=== PATIENT | male | born 1950 | race Caucasian/White ===

== ENCOUNTER → 2022-04-21 15:12 | Outpatient (CLI) | payer MEDICARE, SELFPAY ==
--- NOTE | ~2022-04-21 | US_ITS ---
US scrotum doppler INDICATION: Testicular swelling TECHNIQUE: Testicular sonogram utilizing grayscale and color Doppler FINDINGS: The testes are normal in size and appearance. No focal lesions are seen. The right testes measures 4.8 x 3 x 3.6 cm centimeters, and the left testis measures 5.9 x 3 x 3.3 cm cm. There is nor mal vascular flow to both testes. The right and left epididymides appear normal. There is a small right hydrocele. There is moderate left hydrocele. No evidence for varicocele. IMPRESSION: 1. Bilateral hydroceles, left greater than right. Reviewed, dictated and finalized at location B.
== END ==
PROVIDERS: PCP Physician Assistant; Visit Provider Physician Assistant
DX: N50.89 Other specified disorders of the male genital organs (principal); N43.3 Hydrocele, unspecified
CPT/HCPCS: 76870; 93976

== ENCOUNTER 2022-07-26 10:09 | Outpatient (CLI) | payer MEDICARE, SELFPAY ==
[2022-07-26 10:59] LABS: Hemoglobin A1C 6.5 % (<5.7)
[2022-07-26 11:10] LABS: Alanine Aminotransferase 19 U/L (6-50); Albumin Level 4.1 g/dL (3.5-5.1); Alkaline Phosphatase 48 U/L (38-126); Anion Gap 13 mmol/L (8-16); Aspartate Amino Transferase 25 U/L (17-59); Bilirubin,Total 0.5 mg/dL (0.2-1.3); Blood Urea Nitrogen 24 mg/dL (9-20); Calcium 9.8 mg/dL (8.4-10.2); Carbon Dioxide 20 mmol/L (22-30); Chloride 103 mmol/L (98-107); Estimated Glomerular Filt Rate 50; Glucose 133 mg/dL (65-110); Potassium 4.7 mmol/L (3.4-5.0); Sodium 136 mmol/L (137-145)
== END 2022-07-26 10:10 | disposition home or self-care (01) ==
LOC: ANHLAB 10:11
PROVIDERS: PCP Family Medicine; Visit Provider Family Medicine
DX: E11.9 Type 2 diabetes mellitus without complications (principal)
CPT/HCPCS: 36415; 80053; 83036

== ENCOUNTER 2023-07-13 01:03 | Day surgery (SDC) | payer MEDICARE, SELFPAY ==
[2023-07-12 12:30] VITALS: BMI 42.5
[2023-07-13] VITALS (21 sets, daily range): BP systolic 105–146; BP diastolic 58–76; PULSE 6–76; RESP 11–16; TEMP 36.3; O2SAT 94–98; BMI 41.8
[2023-07-13 09:00] LABS: Basophils Absolute Auto 0.1 K/mm3 (0.0-0.1); Basophils Percent Auto 0.5 % (0.2-1.2); Eosinophils Absolute Auto 0.3 K/mm3 (0-0.3); Eosinophils Percent Auto 2.9 % (0-4.4); Hematocrit 32.1 % (42.0-52.0); Hemoglobin 10.1 g/dL (14.0-18.0); Immature Granulocyte Absolute 0.09 K/mm3 (0.00-0.031); Lymphocytes Percent Auto 16.1 % (18.3-44.2); Mean Corpuscular HGB Conc 31.5 g/dl (32-36); Mean Corpuscular Hemoglobin 26.2 pg (26-34); Mean Corpuscular Volume 83.2 fl (80-100); Mean Platelet Volume 9.5 fl (7.4-10.4); Monocytes Absolute Auto 0.8 K/mm3 (0.1-0.6); Monocytes Percent Auto 8.7 % (2.6-8.5); Neutrophils Absolute Auto 6.6 K/mm3 (1.3-6.7); Neutrophils Percent Auto 70.8 % (45.5-73.1); Platelet Count Result 284 k/mm3 (150-375); Red Blood Count 3.86 M/mm3 (4.6-6.20); Red Cell Distribution Width 16.1 % (11.5-14.5); White Blood Count 9.3 K/mm3 (4.5-10.0)
[2023-07-13 09:12] LABS: Anion Gap 11 mmol/L (8-16); Blood Urea Nitrogen 21 mg/dL (9-20); Calcium 9.7 mg/dL (8.4-10.2); Carbon Dioxide 22 mmol/L (22-30); Chloride 104 mmol/L (98-107); Estimated CRCL calculation 54 ml/min; Estimated Glomerular Filt Rate 54; Glucose 131 mg/dL (65-110); Potassium 4.3 mmol/L (3.4-5.0); Sodium 137 mmol/L (137-145)
--- NOTE | 2023-07-13 10:29 | WPDMODSED ---
Moderate Sedation Note-Pt Data Patient Data Diagnosis: coronary artery disease with previous PCI abnormal nuclear stress test symptoms of ARNETT with chest discomfort Present Complaint: exertional shortness of breath with occasional chest tightness for the last 1-2 months Procedure to be performed/Plan: left heart catheterization Allergies Allergy/AdvReac Type Severity Reaction Status Date / Time bee pollen Allergy Severe Rash Verified 07/13/23 08:48 Home Medications Medication Instructions Recorded Confirmed Type amlodipine 10 mg tablet 10 mg PO DAILY 01/25/20 07/13/23 History aspirin 81 mg tablet,delayed 81 mg PO DAILY 01/25/20 07/13/23 History release (Aspir-) clopidogrel 75 mg tablet 75 mg PO DAILY 01/25/20 07/13/23 History fenofibrate nanocrystallized 145 145 mg PO DAILY 01/25/20 07/13/23 History mg tablet indapamide 2.5 mg tablet 2.5 mg PO QAM 01/25/20 07/13/23 History isosorbide mononitrate 120 mg 120 mg PO DAILY 10/29/20 07/13/23 History tablet,extended release 24 hr omeprazole 20 mg capsule,delayed 20 mg PO DAILY 10/29/20 07/13/23 History release lancets [facility] gauge [facility] ea 10/30/20 01/31/23 Rx Plus Lancet) blood sugar diagnostic ([facility] 01/12/22 01/31/23 Rx Verio test strips) metformin 500 mg tablet,extended 1,000 mg PO BID #360 tabs 11/29/22 07/12/23 Rx release 24hr atorvastatin 40 mg tablet 40 mg PO DAILY #90 tabs 01/10/23 07/13/23 Rx sitagliptin phosphate 100 mg 100 mg PO DAILY #90 tabs 01/10/23 07/12/23 Rx tablet (Januvia) spironolactone 25 mg tablet 25 mg PO DAILY #100 tabs 01/25/23 07/13/23 Rx doxazosin 2 mg tablet 2 mg PO DAILY #90 tabs 03/21/23 07/13/23 Rx nitroglycerin 0.4 mg sublingual 0.4 mg sublingual Q5M PRN chest 04/12/23 07/12/23 Rx tablet pain #25 tabs metoprolol tartrate 100 mg tablet 100 mg PO BID #180 tabs 05/12/23 07/13/23 Rx tramadol 50 mg tablet 50 mg PO Q8H PRN pain #30 tabs 07/08/23 07/12/23 Rx glimepiride 4 mg tablet 8 mg PO DAILY 07/12/23 07/12/23 History lisinopril 30 mg tablet 30 mg PO BID 07/12/23 07/13/23 History Current Medications: Active Medications Sodium Chloride (Normal Saline Iv) 500 mls @ 100 mls/hr IV CONT .Q5H RYAN Sedation/Anesthesia: No previous sedation/anesthesia problems (including family history). [facility] Past Medical History Medical History Bilateral knee pain Chronic kidney disease Coronary artery disease Hyperlipidemia LDL goal <70 Primary hypertension Type 2 diabetes mellitus with hyperglycemia Family History Family History Father Family history of Parkinson's disease Family history of cardiovascular disease Family history of coronary artery disease Mother Family history of cardiovascular disease Family history of coronary artery disease Sibling Family history of cardiovascular disease Family history of coronary artery disease Social History Social History (Updated 04/12/23 @ 08:29 by Binta Worthy GUEST SERVICES ASSISTANT) Smoking packs per day: 1 Smoking cigarettes per day: 20.0 Years smoked: 15 Smoking pack-years: 15.00 Smoking status: Former smoker Second hand tobacco smoke exposure: No Smoking end date: 11/14/96 Alcohol intake: never Substance use: never Substance use type: does not use Lack of Transportation: No Lack of Food: Never True Current Housing: I Have Housing Concerned About Future Housing: No Difficulty Paying Gas/Electric Bills: No Difficulty Paying for Meds: No Currently Unemployed: No Education: High School Diploma/GED Difficulty w/ Childcare or Family Care: No Living arrangements: with family Occupation/Education: retired Gender identity (if verbalized by the patient): Male Sexual Orientation (if Verbalized by the Patient): Straight or Heterosexual Spiritual care concerns: No Mod Sed Physical Exam
--- NOTE | 2023-07-13 11:02 | WPDCARDPROC ---
Cardiac Cath Procedure Note Date of procedure:: 07/13/23 Performing physician:: Khris Goldberg MD Indication:: coronary artery disease with previous PCI exertional dyspnea with anginal type chest pain for the last 1-2 months abnormal nuclear stress test Brief clinical history:: this is a 72-year-old man has had long history of coronary disease with previous percutaneous revascularization. He has been experiencing exertional symptoms with dyspnea and some chest pain of recent onset and a nuclear stress test was significantly abnormal. Follow-up angiography has been therefore recommended Procedure Procedure performed:: left ventriculogram coronary angiogram Sedation/Medication given:: fentanyl 50 mg Versed 2 mg case start 1036 a.m. case end time 10:56 a.m. provided by Lizett Solo RN, trained observer Access site:: right femoral artery Estimated blood loss:: 25 cc Procedure note:: patient was brought to the cardiac catheterization lab postabsorptive state where the right femoral triangle was prepped and draped in the normal fashion. Anesthesia was provided with 1% lidocaine infiltrated locally. Using the modified Seldinger technique the right femoral artery was punctured and a 5 Guamanian vascular sheath was placed. After this I used a 5 Guamanian angled pigtail catheter to measure left-sided hemodynamics and to injection LV g in the LASSITER projection. Following this the left coronary artery was engaged and injected using a standard 5 Guamanian FL4 catheter. The right coronary then was engaged and injected using a standard 5 Guamanian JR4 catheter. The cineangiograms were then reviewed and the case was terminated. Sheath was removed in the holding area with direct manual compression. There were no procedural complications and there was no evidence of groin hematoma when he left the cardiac catheterization lab. Findings:: Hemodynamics: Central aortic pressure 115/60 ventricle 15/10 and diastolic 18 there is no gradient on pullback across the aortic valve. Left ventricle: The LV is normal in size. The apical segment is akinetic the remainder of the LV contracts very well with a global ejection fraction of 60-65%. The left main coronary artery is medium in caliber. There is a complex looking 80-90% distal LAD lesion. It is eccentric the left anterior descending is a small to medium caliber artery there is visible stent material in the LAD after the diagonal branches take their origin. There is a stump of small 1st diagonal branch that is totally occluded aim larger 2nd diagonal branch is a bifurcating vessel which has some proximal ectatic dilatation but no significant lesions are seen in this vessel. A small septal branch is also remaining patent. The stented segment of the LAD distal to these vessels has moderate InStent restenosis of approximately 50-60%. The apical portion of the LAD is totally closed the circumflex is a small caliber vessel that also appears to be diffusely disease. There is stent material in the 1st OM branch which is totally occluded. There is a very small diminutive AV groove portion of the circumflex which remains. The right coronary artery is larger in caliber and dominant to the posterior circulation. There is visible stent material in the 2nd portion of the RCA. The trunk of the right coronary artery is moderately diffusely diseased but I do not see any angiographic lesions that are higher grade than 50-60%. The PDA and PL branches are patent the largest most distal PL branch has a discrete 70-80% stenosis. Conclusion:: 1. Diffuse three-vessel coronary artery disease as described above with 80-90% distal stenosis of the left main 2. diffuse InStent restenosis in mid LAD approximately 60% with total occlusion of the apical portion of the LAD as well as of a relatively small high diagonal branch 3. total occlusion of the obtuse marginal circumflex which had been stented pr
[2023-07-13] MEDS: ONDANSETRON INJ 4 MG/2 ML VIAL (11:35)
--- NOTE | 2023-07-13 14:21 | SUR.PHASEII ---
CORRECTION TO AV SHEATH DOCUMENTATION FOR 1215 AND 1230-CORRECT SHEATH PULL TIME IS 1131
== END 2023-07-13 17:05 | disposition home or self-care (01) ==
PROVIDERS: PCP Family Medicine; Visit Provider Specialist
PROC: 4A023N7 Measurement of Cardiac Sampling and Pressure, Left Heart, Percutaneous Approach (ICD-10-PCS; CPT 93452; principal; 2023-07-13 10:00)
DX: I25.10 Atherosclerotic heart disease of native coronary artery without angina pectoris (principal); T82.855A Stenosis of coronary artery stent, initial encounter; Y83.8 Other surgical procedures as the cause of abnormal reaction of the patient, or of later complication, without mention of misadventure at the time of the procedure; R07.9 Chest pain, unspecified; R06.00 Dyspnea, unspecified; R94.39 Abnormal result of other cardiovascular function study; I12.9 Hypertensive chronic kidney disease with stage 1 through stage 4 chronic kidney disease, or unspecified chronic kidney disease; E11.22 Type 2 diabetes mellitus with diabetic chronic kidney disease; N18.30 Chronic kidney disease, stage 3 unspecified; E78.5 Hyperlipidemia, unspecified; Z95.5 Presence of coronary angioplasty implant and graft; Z79.82 Long term (current) use of aspirin; Z79.84 Long term (current) use of oral hypoglycemic drugs; Z87.891 Personal history of nicotine dependence
CPT/HCPCS: 36415; 80048; 85025; 93458; C1887; C1894; J1644; J2250; J2405; J3010; J7040

== ENCOUNTER 2023-12-01 09:45 | Outpatient (RCR) | payer MEDICARE, SELFPAY ==
[2023-10-04 12:05] VITALS: PULSE 92
== END 2023-12-01 11:38 | disposition home or self-care (01) ==
LOC: ANHCPREHAB 09:45
PROVIDERS: PCP Family Medicine; Visit Provider Internal Medicine Cardiovascular Disease
DX: Z95.1 Presence of aortocoronary bypass graft (principal)
CPT/HCPCS: 93798

== ENCOUNTER 2025-01-23 11:03 | Outpatient (CLI) | payer MEDICARE, SELFPAY ==
--- NOTE | ~2025-01-23 | XR_ITS ---
Clinical Indication: Dyspnea PA and lateral views of the chest: Comparison: 02/16/2017 Findings: There is mild haziness right lung base, nonspecific. Left lung clear. Cardiomediastinal si lhouette is within normal limits. Bones and soft tissues are unremarkable. Impression: Probable mild right basilar atelectatic change, less likely pneumonia. Correlate clinically. Left lung clear. Reviewed, dictated and finalized at location . Impression: Probable mild right basilar atelectatic change, less likely pneumonia. Correlat e clinically. Left lung clear.
--- OUTSIDE RECORDS SUMMARY | 2025-01-23 12:52 | XMS_ITS | Clinical Summary ---
[facility] Address [address] [place] [address] Care Team Providers Care Triage Specialist Name Role Phone Kayleigh Kelley MD Primary Care Provi luz elena Allergies Active Allergy Reactions Criticality Noted Date Comments Venom-Honey Bee Swelling Low 07/24/2018 Medications fenofibrate nanocrystallized (TRICOR) 145 mg tablet 0 Active lisinopriL (PRINIVIL) 40 mg tablet 0 Active JANUVIA 100 mg Tablet TK 1 T PO D 0 Active glimepiride (AMARYL) 4 mg tablet TK 2 TS PO QD 0 Active doxazosin (CARDURA) 2 mg tablet TK 1 T PO QD 0 Active indapamide (LOZOL) 2.5 mg tablet 0 Active atorvastatin (LIPITOR) 40 mg tablet 0 Active clopidogreL (PLAVIX) 75 mg Tablet 0 Active amLODIPine (NORVASC) 10 mg tablet 0 Active metoprolol tartrate (LOPRESSOR) 50 mg tablet 0 Active aspirin-calcium carbonate 81 mg-300 mg calcium(777 mg) Tablet 81 mg. 3 Active isosorbide mononitrate (IMDUR) 30 mg Extended Release 24 hour tablet 0 Active omeprazole (PriLOSEC) 20 mg Capsule, Delayed Release(E.C.) Take 20 mg by mouth. 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 Family History Medical History Relation Name Comments Heart Disease Father Parkinson's Disease Father Heart Disease Mother Parkinson's Disease Mother Heart Disease Sister 2 Relation Name Status Comments Brother 1 Alive Brother 2 Alive Brother 3 Alive Father Mother Alive Sister 1 Alive Sister 2 Alive Sister 3 Alive Son 1 Alive Son 2 Alive Social History Tobacco Use Types Packs/Day Years Used Date Smoking Tobacco: Former Cigarettes 1 20 0 01/28/1977 - 01/28/1997 Smokeless Tobacco: Never Tobacco Cessation:Counseling Given: No Alcohol Use Standard Drinks/Week Comments Not Currently 0 (1 standard drink = 0.6 oz pur e alcohol) Sex and Gender Information Value Date Recorded Sex Assigned at Not on file Legal Sex Male 8:40 AM [employer] Gender Identity Not on file Sexual Orientation Not on file Last Filed Vital Signs Vital Sign Reading Time Taken Comments Blood Pressure 151/80 01/29/2020 2:27 PM CDT 1st bp take 154/85 hr 73 Pulse 70 01/29/2020 2:27 PM CDT Temperature 36.7 C (98 F) 02/11/2020 10:01 AM CDT Respiratory Rate - - Oxygen Saturation 95% 01/29/2020 2:2 7 PM CDT Inhaled Oxygen Concentration - - Weight 126.2 kg (278 lb 3.2 oz) 01/29/2020 2:27 PM CDT Height 165.1 cm (5' 5 ) 01/29/2020 2:27 PM CDT Body Mass Index 46.29 01/29/2020 2:27 PM CDT Plan of Treatment Health Maintenance Due Date Last Done Comments DIABETES ANNUAL FOOT EXAM 1969 DIABETES ANNUAL RETINAL EXAM 1969 DIABETES HBA1C Q 6 MONTHS 1969 DIABETES MICROALBUMIN ANNUAL SCREEN 1969 LDL CHOLESTEROL ANNUAL 1969 DTAP/TDAP/TD VACCINES (1 - Tdap) 1970 ZOSTER VACCINE (1 of 2) 1970 COLORECTAL SCREENING 1996 Colorectal Cancer Screening 1996 FIT-DNA Q 3 years 1996 FIT/FOBT Q 1 year 1996 Flex Sig/CT Colonography Q 5 years 1996 RSV VACCINE (60+ or ) (1 - Risk 60-74 years 1-dose series) 2011 PNEUMOCOCCAL VACCINE 50+ YEA RS (2 of 2 - PPSV23) 03/09/2017 01/12/2017 INFLUENZA VACCINE (#1) 2024 10/21/2017, 2015 Care Teams Triage Specialist Relationship Specialty Start Date End Date Kayleigh Kelley MD [address] [place] [address] PCP - General Family Practice 01/29/20
--- OUTSIDE RECORDS SUMMARY | 2025-01-23 12:52 | XMS_ITS | Clinical Summary ---
Author Organization [facility] Address [address] [place] [address] Care Team Providers Care Automobile Upholstery Trim Installer Name Role Phone Britta Hansen MD Primary Care Provider [phone] Khris Goldberg MD Unavailable [phone] Sukh Robledo MD Unavailable [phone] Rc Garza MD Unavailable [phone] Allergies Active Allergy Reactions Criticality Noted Date Comments Venom-Honey Bee Unknown 07/24/2018 Medications aspirin 81 mg tablet take 1 tablet (81MG) by oral route every day 0 013 Active SITagliptin (JANUVIA) 100 mg tablet take 1 tablet (100MG) by oral route every evening 0 013 Active doxazosin (CARDURA) 2 mg tablet Take 1 tablet (2 mg total) by mouth nightly Active EPINEPHrine (EPIPEN) 0.15 mg/0.3 mL injection syringeIndications: Anaphylaxis Inject 0.3 mL (0.15 mg total) into the muscle as instructed as needed for anaphylaxis Active glimepiride (AMARYL) 4 mg tabletIndications:t ype 2 diabetes mellitus Take 1 tablet (4 mg total) by mouth 2 (two) times a day Active omeprazole (PriLOSEC) 20 mg capsule Take 1 capsule (20 mg total) by mouth daily Active metoprolol (LOPRESSOR) 100 mg tablet Take 1 tablet (100 mg total) by mouth 2 (two) times a day Active metFORMIN XR (GLUCOPHAGE XR) 500 mg 24 hr tablet Take 2 tablets (1,000 mg total) by mouth 2 (two) times a day 020 Active traMADoL (ULTRAM) 50 mg tablet Take 1 tablet (50 mg total) by mouth every 8 (eight) hours as needed for pain 021 Active acetaminophen 500 mg capsuleIndications: Pain Take 2 capsules (1,000 mg total) by mouth every 6 (six) hours as needed for pain 023 Active lidocaine (LIDODERM) 5 % Place 2 patches on the skin daily for 7 days Remove & discard patch within 12 hours or as directed by MD. 7 patch 023 Active albuterol HFA (PROVENTIL HFA,VENTOLIN HFA,PROAIR HFA) 90 mcg/actuation inhaler INHALE 1 PUFF BY MOUTH EVERY 4 HOURS NEEDED FOR WHEEZING OR SHORTNESS OF BREATH 024 Active amLODIPine (NORVASC) 10 mg tablet TAKE 1 TABLET(10 MG) BY MOUTH DAILY 90 tablet 024 Active atorvastatin (LIPITOR) 80 mg tablet TAKE 1 TABLET(80 MG) BY MOUTH EVERY NIGHT 90 tablet 025 Active clopidogreL (PLAVIX) 75 mg tablet TAKE 1 TABLET(75 MG) BY MOUTH DAILY 90 tablet 1 025 Active fenofibrate nanocrystallized (TRICOR) 145 mg tablet TAKE 1 TABLET(145 MG) BY MOUTH DAILY 90 tablet 025 Active fenofibrate nanocrystallized (TRICOR) 145 mg tablet Take 1 tablet (145 mg total) by mouth daily 90 tablet 024 2024 Discontinued Active Problems Problem Noted Date Diagnosed Date Renal cell carcinoma 07/10/2024 Mass of lower lobe of right lung 12/09/2023 Hx of CABG 11/01/2023 Aftercare following surgery of the circulatory s ystem 09/21/2023 Right lower lobe lung mass 08/19/2023 Mixed diabetic hyperlipidemi a associated with type 2 diabetes mellitus 08/17/2022 S/P coronary artery stent placement 08/17/2022 Controlled type 2 diabetes m ellitus with stage 3 chronic kidney disease, without long-term current use of insulin 08/17/2022 LYNDSEY on CPAP 08/17/2022 Dyspnea on exertion 07/23/2019 Assessment & Plan (01/30/2021 7:35 PM CDT): Stable, likely deconditioning and obesity. Assessment & Plan (07/23/2019 10:06 AM CDT): Lungs sound clear on exam. His exertional dyspnea may be secondary to obesity and deconditioning, but need to rule out LV dysfunction and myocardial ischemia, particularly given the association with mild chest tightness. Will obtain a pharmacologic stress test (cannot walk on a treadmill because of orthopedic issues and uses a cane; he is also on beta-jacquelin therapy) and echocardiogram. Morbid obesity with BMI of 40.0-44.9, adult 07/16 Assessment & Plan (02/01/2022 12:34 PM CDT): He has had some success with weight loss through dietary modification. Assessment & Plan (08/03/2021 11:16 AM CDT): Nice weight loss since last seen in January. He was congratulated on this. Assessment & Plan (01/30/2021 7:36 PM CDT): Would benefit from weight loss through diet and exercise. Difficult because his arthritis prevents him from much activity. Assessment & Plan (07/07/2020 10:26 AM CDT): Weight is stable, but needs to be less. He is limited in his ability to exert because of orthopedic issues. Calorie restriction is important. Assessment & Plan (12/25/2019 11:03 AM ORACLE HRMS DEVELOPER): Needs to lose weight through diet and exercise, the latter being a challenge given his exertional symptoms. Assessment & Plan (07/23/2019 10:08 AM CDT): Needs to lose weight. If cardiac testing comes out okay, will benefit from strict diet and exercise. Assessment & Plan (08/11/2018 6:29 PM CDT): Weight loss through diet and exercise advised. Hypertension associated with diabetes 08/11/2018 Assessment & Plan (02/01/2022 12:34 PM CDT): Blood pressure controlled on current regimen which was not changed. Assessment & Plan (08/03/2021 11:16 AM CDT): Blood pressure is adequately controlled on current regimen. No change was made. Assessment & Plan (01/30/2021 7:35 PM CDT): Blood pressure is adequately controlled on current regimen. No change was made. Assessment & Plan (07/07/2020 10:25 AM CDT): Blood pressure is high today because he forgot to take his medications. When he takes his medicine his blood pressure is normal. Assessment & Plan (03/03/2020 10:04 AM CDT): Blood pressure is adequately controlled on current regimen. No change was made. He Assessment & Plan (12/25/2019 11:02 AM ORACLE HRMS DEVELOPER): Blood pressure is adequately controlled on current regimen. No change was made. Assessment & Plan (08/02/2019 5:42 PM CDT): One of his two blood pressure readings today was high. Possibly secondary to increased sodium intake. Will see what his blood pressure is on the day of his cardiac testing. Assessment & Plan (08/11/2018 6:28 PM CDT): Blood pressure is adequately controlled on current regimen. No change was made. Coronary artery disease invo lving eagle coronary artery of eagle heart without angina pectoris 04/22/2015 Overview (02/18/2017): Coronary arteriosclerosis in eagle artery Assessment & Plan (02/01/2022 12:35 PM CDT): Asymptomatic on isosorbide 120 mg daily and metoprolol 100 mg b.i.d... Continue aspirin 81 mg daily and Plavix 75 mg daily. Cardiac catheterization avoided because of diabetic nephropathy. He will follow-up with Dr. Whitaker in six months. If still stable at that time, can probably be seen yearly. Assessment & Plan (08/03/2021 11:16 AM CDT): On his current regimen of high-dose Imdur and metoprolol, he is asymptomatic of angina. Continue these medications as well as dual anti-platelet therapy. Assessment & Plan (01/30/2021 7:34 PM CDT): Asymptomatic on medical therapy. No change. Continue dual anti-platelet therapy. Assessment & Plan (07/07/2020 10:25 AM CDT): Minimal exertional angina if he exerts himself more than his usual. Will increase isosorbide to 120 mg daily, 1st with his trying taking two of his 60 mg tablets. He is to call in a week in if this is working out for him we will prescribe 120 mg strength. Assessment & Plan (03/03/2020 10:04 AM CDT): Symptoms improved with low-dose isosorbide. Will increase to 60 mg daily. He would like to try this by doubling up on his 30 mg pills for a few days and will call us by the end of the week to let us know if this has worked in which case we will send in a prescription for 60 mg tabs. Assessment & Plan (12/25/2019 11:02 AM ORACLE HRMS DEVELOPER): He is experiencing stable angina, with exertional dyspnea and chest discomfort. From his recent pharmacologic MPI, this appears to be in the distribution of his distal LAD which is known to be disease. I am hesitant to recommend cardiac catheterization given his renal status, and he agrees with that. Will start low-dose nitrate (explained that he may have a headache for a couple of days which he can treat with Tylenol and to let me know if it does not go away), with supplemental sublingual nitroglycerin as needed. Continue aspirin. Assessment & Plan (07/23/2019 10:07 AM CDT): He is not experiencing his usual exertional jaw discomfort. Continue anti- platelet therapy. Assessment & Plan (08/11/2018 6:28 PM CDT): No symptoms of myocardial ischemia. Continue anti-platelet therapy. Resolved Problems Problem Noted Date Diagnosed Date Resolved Date Coronary artery disease invo lving eagle coronary artery of eagle heart with unstable angina pectoris 08/15/2023 11/01/2023 Pure hypercholesterolemia 08/11/2018 Assessment & Plan (02/01/2022 12:34 PM CDT): Continue high-intensity statin therapy. Assessment & Plan (08/03/2021 11:16 AM CDT): On chronic lipid lowering therapy with good control. No changes made. Assessment & Plan (01/30/2021 7:35 PM CDT): On chronic lipid lowering therapy with good control. No changes made. Assessment & Plan (07/07/2020 10:25 AM CDT): On chronic lipid lowering therapy with good control. No changes made. Assessment & Plan (03/03/2020 10:06 AM CDT): On chronic lipid lowering therapy with good control. No changes made. Assessment & Plan (12/25/2019 11:03 AM ORACLE HRMS DEVELOPER): On chronic lipid lowering therapy with good control. No changes made. Assessment & Plan (08/02/2019 5:41 PM CDT): He is on high-intensity statin therapy. LDL is reasonably controlled. HDL is chronically low. Assessment & Plan (08/11/2018 6:29 PM CDT): On chronic lipid lowering therapy with good control. No changes made. Encounters Date Type Department Care Team Description 01/18/2025 3:30 PM ORACLE HRMS DEVELOPER Office Visit [facility]iology at [address] [place] [address] Khris Goldberg MD Hx of CABG (Primary Dx); S/P coronary artery stent placement 10/25/[address] [address] Lisa Renteria MA Successful Phone Call ([employer] DM eye exam ) from Last 3 Months Immunizations Immunization Administration Dates Next Due Influenza, Quadrivalent, Spl it, Preservative Free, Intramuscular 01/17/2016 Influenza, Trivalent, High D ose, Split, Preservative Free, Intramuscular 10/21/2017 Surgical History Surgery Date Site/Laterality Comments APPENDECTOMY Appendectomy US GUIDED BIOPSY RENAL 12/28/2013 N/A GALLBLADDER SURGERY KIDNEY SURGERY 11/14/2016 - 11/13/2017 Left left nephrectomy REVISION TOTAL HIP ARTHROPLASTY 05/14/2018 - 06/13/2018 Right CRYOABLATION RENAL RIGHT 11/14/2014 - 11/13/2015 Right CORONARY STENT PLACEMENT 11/14/2000 - 11/13/[address] Forde, [address] Forde CORONARY ARTERY BYPASS GRAFT 08/18/2023 x4 LUNG SURGERY 12/09/2023 Right Thoracoscopy, Right Lower Lobectomy Medical History Medical History Date Comments Hyperlipidemia Hypertension CAD (coronary artery disease) Diabetes mellitus (HCC) Sleep apnea Home Cpap Myocardial infarction (HCC) 2000 Chronic kidney disease Cancer (HCC) 2017 Kidney Cancer of lower lobe of right lung (HCC) 2023 Family History Medical History Relation Name Comments Coronary artery disease Father Alfonso nary Artery Disease; Prostate cancer Father Family histo ry of malignant neoplasm of prostate - (Added by TW Conv) Stent Father Coronary Stent Placement; Coronary artery disease Mother Alfonso nary Artery Disease; /Coronary Artery Bypass Graft; Coronary artery disease Sister Hypertension Sister Relation Name Status Comments Brother Alive Father Mother Sister Alive Social History Tobacco Use Types Packs/Day Years Used Date Smoking Tobacco: Former Cigarettes 1 15 1 2 - 1996 Smokeless Tobacco: Never Tobacco Cessation:Counseling Given: Not Answered Alcohol Use Standard Drinks/Week Comments No 0 (1 standard drink = 0.6 oz pur e alcohol) OASIS D0700: Social Isolation Answer Da te Recorded Frequency of experiencing loneliness or isolatio n Never 09/19/2023 OASIS A1250: Transportation Answer Date Recorded Lack of Transportation (Medical) No 09/19/2023 Lack of Transportation (Non-Medical) No 09/19/2023 Patient Unable or Declines to Respond No 09/19/2023 OASIS B1300: Health Literacy Answer Angel e Recorded Frequency of needing help to read materials from doctor or pharmacy Never 09/19/2023 [facility] Utilities Answer Date Recorded In the past 12 months has th e electric, gas, oil, or water company threatened to shut off services in your home? No 12/12/2023 Social Connection and Isolat ion Panel [NHANES] Answer Date Recorded In a typical week, how many times do you talk on the phone with family, friends, or neighbors? More than three times a week 12/12/2023 How often do you get togethe r with friends or relatives? More than three times a week 12/12/2023 How often do you attend chur ch or congregation services? More than 4 times per year 12/12/2023 Do you belong to any clubs o r organizations such as sabianism groups, unions, fraternal or athletic groups, or school groups? Yes 12/12/2023 How often do you attend meet ings of the clubs or organizations you belong to? 1 to 4 times per year 12/12/2023 Are you , , di vorced, , never , or living with a partner? 12/12/2023 AUDIT-C Answer Date Recorded Q1: How often do you have a drink containing alcohol? Never 12/09/2023 Q2: How many drinks containi ng alcohol do you have on a typical day when you are drinking? Patient does not drink Q3: How often do you have si x or more drinks on one occasion? Never 12/09/2023 Overall Financial Resource Strain (CARDIA) Answe r Date Recorded How hard is it for you to pa y for the very basics like food, housing, medical care, and heating? Not hard at all 12/12/2023 Hunger Vital Sign Answer Date Recorded Within the past 12 months, y ou worried that your food would run out before you got the money to buy more. Never true 12/12/19 24 Within the past 12 months, t he food you bought just didn't last and you didn't have money to get more. Never true 12/12/2023 PRAPARE - Transportation Answer Date Re corded In the past 12 months, has l ack of transportation kept you from medical appointments or from getting medications? No 11/15 In the past 12 months, has l ack of transportation kept you from meetings, work, or from getting things needed for daily living? No 12/12/2023 Housing Stability Vital Sign Answer Angel e Recorded In the last 12 months, was t here a time when you were not able to pay the mortgage or rent on time? No 12/12/2023 In the last 12 months, how many places have you lived? 1 12/12/2023 In the last 12 months, was t here a time when you did not have a steady place to sleep or slept in a fpc (including now)? No 12/12/2023 Personal Safety Answer Date Recorded Have you ever been in or are you currently in a harmful physical or emotional relationship or is someone making you feel afraid or unsafe? Denies 12/09/2023 Sex and Gender Information Value Date Recorded Sex Assigned at Not on file Legal Sex Male 11:23 AM ORACLE HRMS DEVELOPER Gender Identity Not on file Sexual Orientation Not on file Obstetrics History Last Filed Vital Signs Vital Sign Reading Time Taken Comments Blood Pressure 148/72 01/18/2025 3:16 PM ORACLE HRMS DEVELOPER Pulse 94 01/18/2025 3:16 PM ORACLE HRMS DEVELOPER Temperature 37.1 C (98.7 F) 12/12/2023 12:10 PM ORACLE HRMS DEVELOPER Respiratory Rate 16 01/04/2024 11:11 AM ORACLE HRMS DEVELOPER Oxygen Saturation 96% 01/18/2025 3:16 PM ORACLE HRMS DEVELOPER Inhaled Oxygen Concentration - - Weight 117.5 kg (259 lb) 01/18/2025 3:16 PM ORACLE HRMS DEVELOPER Height 167.6 cm (5' 6 ) 01/18/2025 3:16 PM ORACLE HRMS DEVELOPER Body Mass Index 41.8 01/18/2025 3:16 PM ORACLE HRMS DEVELOPER Plan of Treatment Health Maintenance Due Date Last Done Comments Albumin Creatinine Ratio, Urine 1951 Colon Cancer Screening-Colonoscopy 1950 Depression Screening 1951 Hepatitis C Screening 1950 Prostate Cancer Screening-PSA 1951 Dilated Eye Exam 1951 Foot Exam 1951 DTaP/Tdap/Td Vaccine (1 - Tdap) 1962 Hepatitis B Screening 1969 Zoster Vaccine (1 of 2) 1970 Well Visit 65+ 2016 Pneumococcal vaccine 65+ (2 of 2 - PPSV23) 03/09/2017 01/12/2017 Hemoglobin A1C 02/17/2024 08/18/2023, 09/15, 07/11/2017 Influenza Vaccine (#1) 2024 10/21/2017, 2015 eGFR 12/11/2024 12/11/2023, 11/15, 12/06/2023, Additional history exists Fall Risk Assessment 12/12/2024 12/12/2023 Lipid Panel 05/18/2025 05/18/2024, 10/14, 04/12/2023, Additional history exists Abdominal Aortic Aneurysm (A AA) Screen Completed 05/30/2017, 09/16/2014 Medical Devices Implanted Type Area Grounds Maintenance Worker Device Identifier Shelf Expiration Date Model / Serial / Lot Bard Peripheral Vascular Bard .25x.25in [place] Thk1.65mm Square [employer] Ptfe [id number] - [id number] Implanted:Qty: 1 on 08/18/2023 by Sukh Robledo MD at [facility] N/A: Heart Bard Peripheral Vascular 08/11/2026 [id number] / / [employer] Device Closure Fibertape Sternal Cerclage Blunt Needle Ar-7289 - [id number] Implanted:Qty: 1 on 08/18/2023 by Sukh Robledo MD at [facility] N/A: Sternum [employer] 06/13/2028 AR-7289 / / [id number] [employer] Device Closure Fibertape Sternal [place] Blunt Needle Ar-7289 - [id number] Implanted:Qty: 1 on 08/18/2023 by Sukh Robledo MD at [facility] N/A: Sternum [employer] 06/13/2028 AR-7289 / / [id number] [employer] Device Closure Fibertape Sternal Cerclage Blunt Needle Ar-7289 - [id number] Implanted:Qty: 1 on 08/18/2023 by Sukh Robledo MD at [facility] N/A: Sternum [employer] 06/13/2028 AR-7289 / / [id number] Procedures Procedure Name Priority Date/Time Associated Diagnosis Comments LIPID PANEL Routine 05/18/2024 11:36 AM CDT EGFR Routine 12/11/2023 12:47 AM ORACLE HRMS DEVELOPER HEMOGLOBIN A1C STAT 08/18/2023 8:[address] ABDOMEN PELVIS W WO CONTRAST Routine 05/30/2017 6:14 PM CDT from Last 3 Months or Most Recently Relevant to Health Maintenance Results * (ABNORMAL) Lipid panel (05/18/2024 11:36 AM CDT) SCRIBED Cholesterol, Total 122 0 - 200 EXTERNAL LAB SCRIBED HDL 28(A) 40 - 100 EXTERNAL LAB SCRIBED LDL 70 0 - 100 EXTERNAL LAB SCRIBED Triglycerides 163(A) 0 - 150 EXTERNAL LAB Blood 05/18/2024 11:3 6 AM CDT us Historical Provider LAB BLOOD ORDERABLES Tiffany aceves Result EXTERNAL LAB * eGFR (12/11/2023 12:47 AM ORACLE HRMS DEVELOPER) eGFR 81 mL/min/1. 73 m2 [facility] Comment: Interpretive Data Reference Interval Normal >/= 90 mL/min/1.73m2 Mildly decreased* 60 - 89 mL/min/1.73m2 Mildly to moderately decreased 45 - 59 mL/min/1.73m2 Moderately to severely decreased 30 - 44 mL/min/1.73m2 Severely decreased 15 - 29 mL/min/1.73m2 Kidney Failure < 15 mL/min/1.73m2 *Relative to young adult level Estimated glomerular filtration rate is determined by the 2020 CKD-EPI equation recommended by the National Kidney Foundation (A Unifying Approach to GFR Estimation: Recommendations of the NKF-ASK Task Force on Reassessing the Inclusion of Race in Diagnosing Kidney Disease, JASN 2020). The CKD-EPI equation should not be used for patients with unstable renal function and has not been validated in children and those over 70. Current interpretive data was last reviewed 2021. Blood 12/11/2023 12:4 7 AM ORACLE HRMS DEVELOPER 12/11/2023 1:09 AM ORACLE HRMS DEVELOPER us Robbie Meyer PA LAB BLOOD ORDERABLES Final R esult Performing Organization Address [facility] de Phone Number [facility] [address] [place] [address] * (ABNORMAL) Hemoglobin A1c (08/18/2023 8:08 AM CDT) Hgb A1C 6.3(H) 4.0 - 5.6 % [facility] Estimated Average Glucose 134 mg/dL [facility] Comment: The ADA recommends reporting an estimated Average Glucose (eAG) with all Hemoglobin A1c results using the equation derived from a study of 507 normal and diabetic adults. Minority populations were underrepresented and children were not included. (Diabetes Care 31:8572-3822, 2008). The eAG is not equivalent to a fasting glucose. Blood 08/18/2023 8:08 AM CDT 08/18/2023 8:21 AM CDT Monisha Short NP LAB BLOOD ORDERABLES Final Resul t Performing Organization Address [facility] de Phone Number [facility] [address] Department [place], [place] [id number] * CT Abdomen Pelvis W WO Contrast (05/30/2017 6:14 PM CDT) Anatomical Region Laterality Modality Body N/A Computed Tomogra phy 05/30/2017 6:14 PM CDT Narrative 05/30/2017 6:14 PM CDT CHRISTOS HOUSTON M.D. MARILIA BURCH M.D. FINAL REPORT The radiology attending physician has personally reviewed this study, and has reviewed and/or edited this written report and agrees with it. [facility]# Date Time Exam [id number] May 30, 2017 13:14:[id number] Abd and Pelvis w/wo EXAMINATION: CT OF THE ABDOMEN AND PELVIS WITH AND WITHOUT INTRAVENOUS CONTRAST HISTORY: 66-year-old man with pancreatic mass TECHNIQUE: Transaxial computed tomographic images of the abdomen and pelvis were obtained with and without intravenous contrast according to pancreatic protocol using 125 mL Optiray-350. No immediate complications following contrast administration. FINDINGS: Comparison is made with the previous CT from 09/16/2014. Limited images through the lung bases are unremarkable. Severe atherosclerotic calcifications are present in the coronary arteries. Heart size is normal without pericardial effusion. There is a 3.1 x 1.9 cm hypoenhancing soft tissue mass involving the uncinate process of the pancreas (slice position -790.5) is thought this mass does not abut the portal vein, inferior cava, or celiac, or superior mesenteric arteries. This previously measured 3.2 x 1.6 cm. No other pancreatic masses are seen. There is no pancreatic duct dilatation or pancreatic atrophy. There are no focal liver lesions. Portal veins are patent. There is a enhancing soft tissue thickening in the region of the gallbladder fundus and gallbladder fossa which could related to a adenomyomatosis. A calcified granuloma present in the spleen. The adrenals are normal. Changes of radiofrequency ablation are seen in right kidney lower pole. A 3.3 x 2.2 cm heterogenous enhancing solid mass arises from the interpolar region of the left kidney (slice position -758.5). No hydronephrosis or hydroureter is seen. Urinary bladder is normal. The prostate is mildly enlarged. Colonic diverticulosis is present without diverticulitis. There is changes of appendectomy present. Bowel loops are normal in course and caliber without signs of obstruction. There is no ascites or pneumoperitoneum. There are a few mildly enlarged peripancreatic and portacaval lymph nodes. For reference a 1.6 x 1.4 cm peripancreatic lymph node (slice position -840.5). This is unchanged from the previous examination. Severe atherosclerotic calcifications are present in the abdominal aorta, iliac and femoral arteries, as well as the celiac and superior mesenteric arteries. There is a retroaortic left renal vein. Bone windows show a healed right femoral neck fracture. No suspicious lytic or blastic osseous lesions are seen. Moderate lower lumbar spine facet arthritis is noted. There is grade 1 anterolisthesis of L4 on L5. IMPRESSION: 1. 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 Few prominent a adjacent lymph nodes are unchanged. 2. A 3.3 cm contrast enhancing solid mass arising from the interpolar region of the left kidney is worrisome for renal cell carcinoma. 3. Hypoattenuating soft tissue infiltration in the region of the gallbladder fossa and gallbladder fundus. Although this could be secondary to adenomyomatosis, this is new from the previous examination raises concern for malignancy. An ultrasound evaluation is recommended. Requested By: TADEO IBRAHIM M.D. Dictated By: MARILIA BURCH M.D. on May 30 2017 2:00P This document has been electronically signed by: CHRISTOS HOUSTON M.D. on May 30 2017 2:06P [id number] Elena WEISS M.D. FINAL REPORT The radiology attending physician has personally reviewed this study, and has reviewed and/or edited this written report and agrees with it. Attending: TADEO IBRAHIM Requesting: TADEO IBRAHIM Requesting Fax: Attending Fax: Attending ID: [id number] Requesting ID: [id number] Report To 1 ID: [id number] Report To 1 Name: , Report To 1 FAX: NextGen Order #: Procedure Note Miscellaneous, Not In File - 09/04/2017 Rosa Elena WEISS M.D. FINAL REPORT The radiology attending physician has personally reviewed this study, and has reviewed and/or edited this written report and agrees with it. ACC# Date Time Exam [id number] May 30, 2017 13:14:[address] Abd and Pelvis w/wo EXAMINATION: CT OF THE ABDOMEN AND PELVIS WITH AND WITHOUT INTRAVENOUS CONTRAST HISTORY: 66-year-old man with pancreatic mass TECHNIQUE: Transaxial computed tomographic images of the abdomen and pelvis were obtained with and without intravenous contrast according to pancreatic protocol using 125 mL Optiray-350. No immediate complications following contrast administration. FINDINGS: Comparison is made with the previous CT from 09/16/2014. Limited images through the lung bases are unremarkable. Severe atherosclerotic calcifications are present in the coronary arteries. Heart size is normal without pericardial effusion. There is a 3.1 x 1.9 cm hypoenhancing soft tissue mass involving the uncinate process of the pancreas (slice position -790.5) is thought this mass does not abut the portal vein, inferior cava, or celiac, or superior mesenteric arteries. This previously measured 3.2 x 1.6 cm. No other pancreatic masses are seen. There is no pancreatic duct dilatation or pancreatic atrophy. There are no focal liver lesions. Portal veins are patent. There is a enhancing soft tissue thickening in the region of the gallbladder fundus and gallbladder fossa which could related to a adenomyomatosis. A calcified granuloma present in the spleen. The adrenals are normal. Changes of radiofrequency ablation are seen in right kidney lower pole. A 3.3 x 2.2 cm heterogenous enhancing solid mass arises from the interpolar region of the left kidney (slice position -758.5). No hydronephrosis or hydroureter is seen. Urinary bladder is normal. The prostate is mildly enlarged. Colonic diverticulosis is present without diverticulitis. There is changes of appendectomy present. Bowel loops are normal in course and caliber without signs of obstruction. There is no ascites or pneumoperitoneum. There are a few mildly enlarged peripancreatic and portacaval lymph nodes. For reference a 1.6 x 1.4 cm peripancreatic lymph node (slice position -840.5). This is unchanged from the previous examination. Severe atherosclerotic calcifications are present in the abdominal aorta, iliac and femoral arteries, as well as the celiac and superior mesenteric arteries. There is a retroaortic left renal vein. Bone windows show a healed right femoral neck fracture. No suspicious lytic or blastic osseous lesions are seen. Moderate lower lumbar spine facet arthritis is noted. There is grade 1 anterolisthesis of L4 on L5. IMPRESSION: 1. 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 Few prominent a adjacent lymph nodes are unchanged. 2. A 3.3 cm contrast enhancing solid mass arising from the interpolar region of the left kidney is worrisome for renal cell carcinoma. 3. Hypoattenuating soft tissue infiltration in the region of the gallbladder fossa and gallbladder fundus. Although this could be secondary to adenomyomatosis, this is new from the previous examination raises concern for malignancy. An ultrasound evaluation is recommended. Requested By: TADEO IBRAHIM M.D. Dictated By: MARILIA BURCH M.D. on May 30 2017 2:00P This document has been electronically signed by: CHRISTOS HOUSTON M.D. on May 30 2017 2:06P [id number] Elena WEISS M.D. FINAL REPORT The radiology attending physician has personally reviewed this study, and has reviewed and/or edited this written report and agrees with it. Attending: TADEO IBRAHIM Requesting: TADEO IBRAHIM Requesting Fax: Attending Fax: Attending ID: [id number] Requesting ID: [id number] Report To 1 ID: [id number] Report To 1 Name: , Report To 1 FAX: NextGen Order #: Tadeo Ibrahim MD IMG CT PROCEDURES Edited Result - Final from Last 3 Months or Most Recently Relevant to Health Maintenance Insurance [facility] ADVANTRA ANTH ACCESS CHOICE Member Subscriber Plan / Payer (Ef fective 2019-Present) Name:Toan Max Stefany Relation to Subscriber:Self Name:Toan Max Payer ID:[id number] (NA) Type:[facility] Address: [address] ADVANTRA [facility]TRA [facility] Advance Directives For more information, please contact: [phone] * Full Code (Latest Code Status on File) Date Activated Date Inactivated Comments 12/09/2023 3:49 PM 12/12/2023 7:38 PM * Full Code Date Activated Date Inactivated Comments 08/18/2023 2:32 PM 08/23/2023 8:00 PM Care Teams Automobile Upholstery Trim Installer Relationship Specialty Start Date End Date Britta Hansen MD PCP - General Family Medicine 07/14/23 Khris Goldberg MD [address] [place] [address] Referring Physician Cardiology 07/14/23 Sukh Robledo MD [address] [address] Consulting Physician Cardiothoracic Surgery 07/14/23 Rc Garza MD [address] [address] Referring Physician Cardiology 07/14/23
--- OUTSIDE RECORDS SUMMARY | 2025-01-23 12:53 | XMS_ITS | Referral Summary ---
Author Organization [facility] Address [address] [place] [address] Care Team Providers Care Research Methodologist Name Role Phone Britta Hansen MD Primary Care Provider [phone] Khris Goldberg MD Unavailable [phone] Sukh Robledo MD Unavailable [phone] Rc Garza MD Unavailable [phone] Encounters Date Type Department Care Team Description 01/18/2025 3:30 PM TAR LEVELER Office Visit [facility] Cardiology at [address] [place] [address] Khris Goldberg MD Hx of CABG (Primary Dx); S/P coronary artery stent placement 10/25/2024 Telephone [facility] Accountable Care Organization [address] [place] [address] [place] Successful Phone Call ([employer] DM eye exam ) from Last 3 Months Allergies Active Allergy Reactions Criticality Noted Date [...] total) by mouth daily 90 tablet 024 02/12/ 2025 Discontinued Active Problems Problem Noted Date Diagnosed [...] important. Assessment & Plan (12/25/2019 11:03 AM TAR LEVELER): Needs to lose weight through diet and [...] He Assessment & Plan (12/25/2019 11:02 AM TAR LEVELER): Blood pressure is adequately controlled on current [...] was made. Coronary artery disease invo lving [place] coronary artery of [place] heart without angina pectoris 04/22/2015 Overview (02/18/2017): Coronary arteriosclerosis in [place] artery Assessment & Plan (02/01/2022 12:35 PM [...] tabs. Assessment & Plan (12/25/2019 11:02 AM TAR LEVELER): He is experiencing stable angina, with exertional [...] Resolved Date Coronary artery disease invo lving [place] coronary artery of [place] heart with unstable angina pectoris 08/15/2023 11/01/2023 [...] made. Assessment & Plan (12/25/2019 11:03 AM TAR LEVELER): On chronic lipid lowering therapy with good control. No changes made. Assessment & Plan (08/02/2019 5:41 PM CDT): He is on high-intensity statin therapy. LDL is reasonably controlled. HDL is chronically low. Assessment & Plan (08/11/2018 6:29 PM CDT): On chronic lipid lowering therapy with good control. No changes made. Immunizations Immunization Administration Dates Next Due Influenza, Quadrivalent, Spl it, Preservative Free, Intramuscular 01/17/2016 Influenza, Trivalent, High D ose, Split, Preservative Free, Intramuscular 10/21/2017 Social History Tobacco Use Types Packs/Day Years Used Date Smoking Tobacco: Former Cigarettes 1 15 1 - 1996 Smokeless Tobacco: Never Tobacco Cessation:Counseling [...] materials from doctor or pharmacy Never 09/19/2023 [facility] Utilities Answer Date Recorded In the past 12 months has th e [employer], gas, oil, or water [employer] threatened to shut off services in your [...] often do you attend chur ch or nondenominational services? More than 4 times per year 12/12/2023 Do you belong to any clubs o r organizations such as alevism groups, unions, fraternal or athletic groups, or [...] place to sleep or slept in a [place] facility (including now)? No 12/12/2023 Personal Safety Answer Date Recorded Have you ever been in or are you currently in a harmful physical or emotional relationship or is someone making you feel afraid or unsafe? Denies 12/09/2023 Sex and Gender Information Value Date Recorded Sex Assigned at Not on file Legal Sex Male 11:23 AM TAR LEVELER Gender Identity Not on file Sexual Orientation Not on file Last Filed Vital Signs Vital Sign [place] Time Taken Comments Blood Pressure 148/72 01/18/2025 3:16 PM TAR LEVELER Pulse 94 01/18/2025 3:16 PM TAR LEVELER Temperature 37.1 C (98.7 F) 12/12/2023 12:10 PM TAR LEVELER Respiratory Rate 16 01/04/2024 11:11 AM TAR LEVELER Oxygen Saturation 96% 01/18/2025 3:16 PM TAR LEVELER Inhaled Oxygen Concentration - - Weight 117.5 kg (259 lb) 01/18/2025 3:16 PM TAR LEVELER Height 167.6 cm (5' 6 ) 01/18/2025 3:16 PM TAR LEVELER Body Mass Index 41.8 01/18/2025 3:16 PM TAR LEVELER Plan of Treatment Not on file Medical Devices Implanted Type Area Mobile Game Engineer Device Identifier Shelf Expiration Date Model / Serial / Lot Bard Peripheral Vascular Bard .25x.25in [place] Thk1.65mm Square [place] Ptfe [id number] - [id number] Implanted:Qty: 1 on 08/18/2023 by Sukh Robledo MD at [facility] N/A: Heart Bard Peripheral Vascular 08/11/2026 [id number] / / [employer] Device Closure Fibertape Sternal Cerclage Blunt Needle Ar-7289 - [id number] Implanted:Qty: 1 on 08/18/2023 by Sukh Robledo MD at [facility] N/A: Sternum [employer] 06/13/2028 AR-7289 / / [id number] [employer] Device Closure Fibertape Sternal [place]clage Blunt Needle Ar-7289 - [id number] Implanted:Qty: 1 on 08/18/2023 by Sukh Robledo MD at [facility] N/A: Sternum [employer] 06/13/2028 AR-7289 / / [id number] [employer] Device Closure Fibertape Sternal Cerclage Blunt Needle Ar-7289 - [id number] Implanted:Qty: 1 on 08/18/2023 by Sukh Robledo MD at [facility] N/A: Sternum [employer] 06/13/2028 AR-7289 / / [id number] Procedures Procedure Name Priority Date/Time Associated Diagnosis Comments LIPID PANEL Routine 05/18/2024 11:36 AM CDT EGFR Routine 12/11/2023 12:47 AM TAR LEVELER HEMOGLOBIN A1C STAT 08/18/2023 8:08 AM CDT [...] 11:3 6 AM CDT us Historical Provider MD LAB BLOOD ORDERABLES Tiffany ketan Result EXTERNAL LAB * eGFR (12/11/2023 12:47 AM TAR LEVELER) eGFR 81 mL/min/1. 73 m2 [facility] Comment: Interpretive Data Reference Interval Normal >/= [...] of Race in Diagnosing Kidney Disease, JASN 202). The CKD-EPI equation should not be used for patients with unstable renal function and has not been validated in children and those over 70. Current interpretive data was last reviewed 2021. Blood 12/11/2023 12:4 7 AM TAR LEVELER 12/11/2023 1:09 AM TAR LEVELER Robbie Meyer PA LAB BLOOD ORDERABLES Final R esult Performing Organization Address [facility] de Phone Number [facility] [address] [facility] [place] [address] * (ABNORMAL) Hemoglobin A1c (08/18/2023 8:08 AM CDT) Hgb A1C 6.3(H) 4.0 - 5.6 % [facility] Estimated Average Glucose 134 mg/dL [facility] Comment: The ADA recommends reporting an estimated Average Glucose (eAG) with all Hemoglobin A1c results using the equation derived from a study of 507 normal and diabetic adults. Minority populations were underrepresented and children were not included. (Diabetes Care 31:8311-5052, 2008). The eAG is not equivalent to a fasting glucose. Blood 08/18/2023 8:08 AM CDT 08/18/2023 8:21 AM CDT Monisha Short FILM MAKER LAB BLOOD ORDERABLES Final Resul t Performing Organization Address [facility] de Phone Number [facility] [address] [facility] [place] [address] * CT Abdomen Pelvis W WO Contrast (05/30/2017 6:14 PM CDT) Anatomical Region Laterality Modality Body N/A Computed Tomogra phy 05/30/2017 6:14 PM CDT Narrative 05/30/2017 6:14 PM CDT CHRISTOS HOUSTON M.D. MARILIA BURCH M.D. FINAL REPORT The radiology attending physician has personally reviewed this study, and has reviewed and/or edited this written report and agrees with it. ACC# Date Time Exam [id number] May 30, 2017 13:14:[id number] Abd and Pelvis w/wo EXAMINATION: CT [...] HOUSTON M.D. on May 30 2017 2:06P [id number] Elena WEISS M.D. FINAL REPORT The radiology attending physician has personally reviewed this study, and has reviewed and/or edited this written report and agrees with it. Attending: TADEO IBRAHIM Requesting: TADEO IBRAHIM Requesting Fax: Attending Fax: Attending ID: [id number] Requesting ID: [id number] Report To 1 ID: [id number] Report To 1 Name: , Report To 1 FAX: NextGen Order #: Procedure Note Miscellaneous, Not In File - 09/04/2017 Rosa Elena WEISS M.D. FINAL REPORT The radiology attending physician has personally reviewed this study, and has reviewed and/or edited this written report and agrees with it. ACC# Date Time Exam [id number] May 30, 2017 13:14:[address] Abd and Pelvis w/wo EXAMINATION: CT [...] HOUSTON M.D. on May 30 2017 2:06P [id number] Elena WEISS M.D. FINAL REPORT The radiology attending physician has personally reviewed this study, and has reviewed and/or edited this written report and agrees with it. Attending: TADEO IBRAHIM Requesting: TADEO IBRAHIM Requesting Fax: Attending Fax: Attending ID: [id number] Requesting ID: [id number] Report To 1 ID: [id number] Report To 1 Name: , Report To 1 FAX: NextGen Order #: Tadeo Ibrahim MD IMG CT PROCEDURES Edited Result - Final from Last 3 Months or Most Recently Relevant to Health Maintenance Insurance [place] [facility]TRA [facility] ACCESS CHOICE [facility] Address: [address] [place], [place] [id number] [place] [address] [facility]TRA [facility] ADVANTRA [facility] ADVANTRA Advance Directives For more information, please contact: [phone] * Full Code (Latest Code Status on File) Date Activated Date Inactivated Comments 12/09/2023 3:49 PM 12/12/2023 7:38 PM * Full Code Date Activated Date Inactivated Comments 08/18/2023 2:32 PM 08/23/2023 8:00 PM Care Teams Research Methodologist Relationship Specialty Start Date End Date Britta Hansen MD PCP - General Family Medicine 07/14/23 Khris Goldberg MD [address] [place] [address] Referring Physician Cardiology 07/14/23 Sukh Robledo MD [address] [place] [address] Consulting Physician Cardiothoracic Surgery 07/14/23 Rc Garza MD [address] [place] [address] Referring Physician Cardiology 07/14/23
--- OUTSIDE RECORDS SUMMARY | 2025-01-23 12:53 | XMS_ITS | Clinical Summary ---
Author Organization [facility] Address [address] [place] [address] Phone Care Team Providers Care Shelter Advocate Name Role Phone Britta Hansen MD Primary Care Provider [phone] Allergies Active Allergy Reactions Criticality Noted Date Comments Bee Venom Swelling 07/24/2018 Other reaction(s): Unknown Other reaction(s): Unknown Medications Medication Sig Dispensed Refills Start Date End Date Status SITagliptin (JANUVIA) 100 MG tablet 100 mg 04/14/2013 Active fenofibrate (TRICOR) 145 MG tablet TAKE 1 TABLET(145 MG) BY MOUTH DAILY 10/13/2018 Active doxazosin (CARDURA) 2 MG tablet Take 2 mg by mouth daily Active clopidogrel (PLAVIX) 75 MG tablet TAKE 1 TABLET(75 MG) BY MOUTH DAILY 12/14/2018 Active aspirin 81 MG tablet 81 mg 04/14/2013 Acti ve glimepiride (AMARYL) 4 MG tablet TK 2 TS PO QD 3 07/09/2019 Active amLODIPine (NORVASC) 10 MG tablet 3 07/30/2019 Active atorvastatin (LIPITOR) 40 MG tablet 3 07/30/2019 Active lisinopril (PRINIVIL,ZESTRIL) 40 MG tablet 3 07/30/2019 Active indapamide (LOZOL) 2.5 MG tablet 3 07/30/2019 Active omeprazole (PriLOSEC) [address] capsule Take 20 mg by mouth daily Active nitroglycerin (NITROSTAT) 0.[address] 0.4 mg under the tongue 12/25/2019 Active isosorbide mononitrate (IMDUR) 120 MG 24 hr tablet 07/23/2020 Activ e OneTouch Verio test strip 2 (two) times a day for testing as directed 10/30/2020 Active Lancets (OneTouch Delica Plus [id number]) misc 2 (two) times a day for testing as directed 10/30/2020 Active metFORMIN XR 500 MG 24 hr tablet 10/30/2020 Active traMADol (ULTRAM) 50 MG tablet Take 50 mg by mouth every 8 (eight) hours if needed for pain 04/22/2021 Active spironolactone (ALDACTONE) 25 MG tablet TAKE 1 TABLET(25 MG) BY MOUTH 1 TIME EACH DAY 30 tablet 11 01/26/2022 Active metoprolol tartrate (LOPRESSOR) 100 MG tablet TAKE 1 TABLET(100 MG) BY MOUTH TWICE DAILY 180 tablet 3 05/10/2022 Active Active Problems Problem Noted Date Diagnosed Date Stage 3a chronic kidney disease 10/11/2020 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 No change was made. Pure hypercholesterolemia 08/11/2018 Overview (07/13/2019): Last Assessment & Plan: On chronic lipid lowering therapy with good control. No changes made. Coronary arteriosclerosis in [place] artery 04/22 Overview (07/13/2019): Coronary arteriosclerosis in [place] artery Last Assessment & Plan: No symptoms of myocardial ischemia. Continue anti-platelet therapy. Immunizations Name Administration Dates Next Due Influenza Split High Dose Pr eservative Free IM 10/21/2017 Influenza TIV (IM) 01/25/2022(Deferred: Patient Refused) Influenza, Injectable, Quadr ivalent, Preservative Free 01/17/2016 Pneumococcal Conjugate 13-Valent 01/12/2017 Family History Medical History Relation Comments Dementia Father Dementia Mother Cancer Neg Hx Kidney disease Neg Hx Relation Status Comments Father Mother Social History Tobacco Use Types Packs/Day Years Used Date Smoking Tobacco: Former Smokeless Tobacco: Never Alcohol Use Standard Drinks/Week Comments Yes 0 (1 standard drink = 0.6 oz pur e alcohol) rare Sex and Gender Information Value Date Recorded Sex Assigned at Not on file Gender Identity Not on file Sexual Orientation Not on file Last Filed Vital Signs Vital Sign [place] Time Taken Comments Blood Pressure 118/70 08/02/2022 8:35 AM CDT Pulse 72 08/02/2022 8:35 AM CDT Temperature 36.3 C (97.3 F) 08/02/2022 8:35 AM CDT Respiratory Rate - - Oxygen Saturation - - Inhaled Oxygen Concentration - - Weight 118 kg (260 lb) 08/02/2022 8:35 AM CDT Height 167.6 cm (5' 6 ) 08/02/2022 8:35 AM CDT Body Mass Index 41.97 08/02/2022 8:35 AM CDT Plan of Treatment Health Maintenance Due Date Last Done Comments Diabetic Foot Exam 1961 Ophthalmology Exam 1960 Pneumococcal PPSV23/PCV13 65 + Years / High and Highest Risk (2 of 4 - PPSV23 or PCV20) 03/09/2017 01/12/2017 Influenza Vaccine (#1) 2024 01/17/2016 Care Teams Shelter Advocate Relationship Specialty Start Date End Date Britta Hansen MD [address] [place] [address] PCP - General Internal Medicine 01/25/22
== END 2025-01-23 11:04 | disposition home or self-care (01) ==
LOC: ANHIMG 11:08
PROVIDERS: PCP Family Medicine; Visit Provider Student in an Organized Health Care Education/Training Program
DX: R06.00 Dyspnea, unspecified (principal)
CPT/HCPCS: 71046

== ENCOUNTER 2025-04-19 00:51 | Day surgery (SDC) | payer MEDICARE, SELFPAY ==
[2025-04-10 13:58] VITALS: BMI 41.5
--- NOTE | 2025-04-10 14:23 | PC.NURSE ---
Spoke with _PATIENT_ regarding medication PLAVIX_. _PATIENT_verbalizes understanding that the last dose is to be taken on _04/14/2025__ and the Endoscopist will instruct them when to restart after the procedure.
--- OUTSIDE RECORDS SUMMARY | 2025-04-19 00:54 | XMS_ITS | Clinical Summary ---
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
--- OUTSIDE RECORDS SUMMARY | 2025-04-19 00:54 | XMS_ITS | Clinical Summary ---
Author Organization [facility] Lynnette candelaria Address [address], [place] [address] Phone Care Team Providers Care Laundry Bag Punch Operator Name Role Phone Britta Hansen MD Primary Care Provider [phone] Allergies Active Allergy Reactions Criticality Noted Date Comments Bee Venom Swelling 07/24/2018 Other reaction(s): Unknown Other reaction(s): Unknown Medications SITagliptin (JANUVIA) 100 MG tablet 100 mg 3 Active fenofibrate (TRICOR) 145 MG tablet TAKE 1 TABLET(145 MG) BY MOUTH DAILY 8 Active doxazosin (CARDURA) 2 MG tablet Take 2 mg by mouth daily Active clopidogrel (PLAVIX) 75 MG tablet TAKE 1 TABLET(75 MG) BY MOUTH DAILY 9 Active aspirin 81 MG tablet 81 mg 3 Active glimepiride (AMARYL) 4 MG tablet TK 2 TS PO QD 3 9 Active amLODIPine (NORVASC) 10 MG tablet 3 9 Active atorvastatin (LIPITOR) 40 MG tablet 3 9 Active lisinopril (PRINIVIL,ZESTRI L) 40 MG tablet 3 9 Active indapamide (LOZOL) 2.5 MG tablet 3 9 Active omeprazole (PriLOSEC) [address] capsule Take 20 mg by mouth daily Active nitroglycerin (NITROSTAT) 0.[address] 0.4 mg under the tongue 0 Active isosorbide mononitrate (IMDUR) 120 MG 24 hr tablet 0 Active OneTouch Verio test strip 2 (two) times a day for testing as directed 0 Active Lancets (OneTouch Delica Plus [id number]) misc 2 (two) times a day for testing as directed 0 Active metFORMIN XR 500 MG 24 hr tablet 0 Active traMADol (ULTRAM) 50 MG tablet Take 50 mg by mouth every 8 (eight) hours if needed for pain 1 Active spironolactone (ALDACTONE) 25 MG tablet TAKE 1 TABLET(25 MG) BY MOUTH 1 TIME EACH DAY 30 tablet 11 2 Active metoprolol tartrate (LOPRESSOR) 100 MG tablet TAKE 1 TABLET(100 MG) BY MOUTH TWICE DAILY 180 tablet 3 2 Active Active Problems Problem Noted Date Diagnosed [...] control. No changes made. Coronary arteriosclerosis in [place] artery 04/22 Overview (07/13/2019): Coronary arteriosclerosis in [place] artery Last Assessment & Plan: No symptoms of myocardial ischemia. Continue anti-platelet therapy. Immunizations Immunization Administration Dates Next Due Influenza Split High [...] at Not on file Legal Sex Male 7:53 AM MDT Gender Identity Not on file Sexual Orientation [...] 8:35 AM CDT Height 167.6 cm (5' 6) 08/02/2022 8:35 AM CDT Body Mass Index 41.97 08/02/2022 8:35 AM CDT Plan of Treatment Health Maintenance Due Date Last Done Comments Pneumococcal PPSV23/PCV13 65 + Years / Low and Medium Risk (2 of 3 - PPSV23) 01/12/2018 01/12/2017 Influenza Vaccine (Season Ended) 2025 01/17/20 16 Insurance [employer] Care Teams Laundry Bag Punch Operator Relationship Specialty Start Date End Date Britta Hansen MD [address] [place] [address] PCP - General Internal Medicine 01/25/22
--- OUTSIDE RECORDS SUMMARY | 2025-04-19 00:54 | XMS_ITS | Referral Summary ---
Author Organization [facility] Address [address] [place] [address] Care Team Providers Care Brazing Furnace Operator Name Role Phone Britta Hansen MD Primary Care Provider [phone] Khris Goldberg MD Unavailable [phone] Sukh Robledo MD Unavailable [phone] Rc Garza MD Unavailable [phone] Encounters Date Type Department Care Team Description 01/18/2025 3:30 PM THREAD TRIMMER Office Visit [facility] Medical Group Cardiology at [address] [place] [address] Khris Goldberg MD Hx of CABG (Primary Dx); S/P coronary artery stent placement from Last 3 Months Allergies Active Allergy [...] WHEEZING OR SHORTNESS OF BREATH 024 Active clopidogreL (PLAVIX) 75 mg tablet TAKE 1 TABLET(75 MG) BY MOUTH DAILY 90 tablet 1 025 Active amLODIPine (NORVASC) 10 mg tablet TAKE 1 TABLET(10 MG) BY MOUTH DAILY 90 tablet 025 Active atorvastatin (LIPITOR) 80 mg tablet TAKE 1 TABLET(80 MG) BY MOUTH EVERY NIGHT 90 tablet 2 025 Active fenofibrate nanocrystallized (TRICOR) 145 mg tablet TAKE 1 TABLET(145 MG) BY MOUTH DAILY 90 tablet 1 025 Active fenofibrate nanocrystallized (TRICOR) 145 mg tablet TAKE 1 TABLET(145 MG) BY MOUTH DAILY 90 tablet 025 2024 Discontinued Active Problems Problem Noted Date [...] important. Assessment & Plan (12/25/2019 11:03 AM THREAD TRIMMER): Needs to lose weight through diet and [...] He Assessment & Plan (12/25/2019 11:02 AM THREAD TRIMMER): Blood pressure is adequately controlled on current [...] was made. Coronary artery disease invo lving [place] coronary artery of [place] heart without angina pectoris 04/22/2015 Overview (02/18/2017): Coronary arteriosclerosis in [place] artery Assessment & Plan (02/01/2022 12:35 PM [...] tabs. Assessment & Plan (12/25/2019 11:02 AM THREAD TRIMMER): He is experiencing stable angina, with exertional [...] Resolved Date Coronary artery disease invo lving [place] coronary artery of [place] heart with unstable angina pectoris 08/15/2023 11/01/2023 [...] made. Assessment & Plan (12/25/2019 11:03 AM THREAD TRIMMER): On chronic lipid lowering therapy with good [...] Smoking Tobacco: Former Cigarettes 1 15 1 982 - 1996 Smokeless Tobacco: Never Tobacco Cessation:Counseling [...] materials from doctor or pharmacy Never 09/19/2023 [facility] Utilities Answer Date Recorded In the past 12 months has e [employer], gas, oil, or water [employer] threatened to shut off services in your [...] often do you attend chur ch or zoroastrian services? More than 4 times per year 12/12/2023 Do you belong to any clubs o r organizations such as protestant groups, unions, fraternal or athletic groups, or [...] place to sleep or slept in a residential (including now)? No 12/12/2023 Personal Safety Answer Date Recorded Have you ever been in or are you currently in a harmful physical or emotional relationship or is someone making you feel afraid or unsafe? Denies 12/09/2023 Sex and Gender Information Value Date Recorded Sex Assigned at Not on file Legal Sex Male 11:23 AM THREAD TRIMMER Gender Identity Not on file Sexual Orientation Not on file Last Filed Vital Signs Vital Sign Reading Time Taken Comments Blood Pressure 148/72 01/18/2025 3:16 PM THREAD TRIMMER Pulse 94 01/18/2025 3:16 PM THREAD TRIMMER Temperature 37.1 C (98.7 F) 12/12/2023 12:10 PM THREAD TRIMMER Respiratory Rate 16 01/04/2024 11:11 AM THREAD TRIMMER Oxygen Saturation 96% 01/18/2025 3:16 PM THREAD TRIMMER Inhaled Oxygen Concentration - - Weight 117.5 kg (259 lb) 01/18/2025 3:16 PM THREAD TRIMMER Height 167.6 cm (5' 6) 01/18/2025 3:16 PM THREAD TRIMMER Body Mass Index 41.8 01/18/2025 3:16 PM THREAD TRIMMER Plan of Treatment Not on file Medical Devices Implanted Type Area Stablehand Device Identifier Shelf Expiration Date Model / Serial / Lot Bard Peripheral Vascular Bard .25x.25in [place] Thk1.65mm Square Pledget Cardi[employer] Ptfe [id number] - [id number] Implanted:Qty: 1 on 08/18/2023 by Sukh Robledo MD at [facility] N/A: Heart Bard Peripheral Vascular 08/11/2026 [id number] / / [employer] Device Closure Fibertape Sternal Cerclage Blunt Needle Ar-7289 - [id number] Implanted:Qty: 1 on 08/18/2023 by Sukh Robledo MD at [facility] N/A: Sternum [employer] 06/13/2028 AR-7289 / / [id number] [employer] Device Closure Fibertape Sternal Cerclage Blunt Needle Ar-7289 - [id number] Implanted:Qty: 1 on 08/18/2023 by Sukh Robledo MD at [facility] N/A: Sternum [employer] 06/13/2028 AR-7289 / / [id number] [employer] Device Closure Fibertape Sternal [place]cl[place] Blunt Needle Ar-7289 - [id number] Implanted:Qty: 1 on 08/18/2023 by Sukh Robledo MD at [facility] N/A: Sternum [employer] 06/13/2028 AR-7289 / / [id number] Procedures Procedure Name Priority Date/Time Associated Diagnosis Comments LIPID PANEL Routine 05/18/2024 11:36 AM CDT EGFR Routine 12/11/2023 12:47 AM THREAD TRIMMER HEMOGLOBIN A1C STAT 08/18/2023 8:08 AM CDT [...] EXTERNAL LAB * eGFR (12/11/2023 12:47 AM THREAD TRIMMER) eGFR 81 mL/min/1. 73 m2 [facility] Comment: Interpretive Data Reference Interval Normal >/= [...] reviewed 2021. Blood 12/11/2023 12:4 7 AM THREAD TRIMMER 12/11/2023 1:09 AM THREAD TRIMMER Robbie Meyer PA LAB BLOOD ORDERABLES Final R esult Performing Organization Address [facility] Co de Phone Number [facility] [address] [facility] [place] [address] * (ABNORMAL) Hemoglobin A1c (08/18/2023 8:08 AM CDT) Hgb A1C 6.3(H) 4.0 - 5.6 % [facility] Estimated Average Glucose 134 mg/dL [facility] Comment: The ADA recommends reporting an estimated Average Glucose (eAG) with all Hemoglobin A1c results using the equation derived from a study of 507 normal and diabetic adults. Minority populations were underrepresented and children were not included. (Diabetes Care 31:0517-2509, 2008). The eAG is not equivalent to a fasting glucose. Blood 08/18/2023 8:08 AM CDT 08/18/2023 8:21 AM CDT Monisha Short RESIDENTIAL LIVING ASSISTANT LAB BLOOD ORDERABLES Final Resul t Performing Organization Address [facility] Co de Phone Number [facility] [address] [place] [address] * CT Abdomen Pelvis W WO Contrast (05/30/2017 6:14 PM CDT) Anatomical Region Laterality Modality Body N/A Computed Tomogra phy 05/30/2017 6:14 PM CDT Narrative 05/30/2017 6:14 PM CDT CHRISTOS HOUSTON M.D. MARILIA BURCH M.D. FINAL REPORT The radiology attending physician has personally reviewed this study, and has reviewed and/or edited this written report and agrees with it. ACC# Date Time Exam [id number] May 30, 2017 13:14:[id number] Abd and Pelvis w/wo EXAMINATION: CT [...] HOUSTON M.D. on May 30 2017 2:06P [id number] Elena SNOW M.D. FINAL REPORT The radiology attending physician has personally reviewed this study, and has reviewed and/or edited this written report and agrees with it. Attending: TADEO IBRAHIM Requesting: TADEO IBRAHIM Requesting Fax: Attending Fax: Attending ID: [id number] Requesting ID: [id number] Report To 1 ID: [id number] Report To 1 Name: , Report To 1 FAX: NextGen Order #: Procedure Note Miscellaneous, Not In File - 09/04/2017 CHRISTOS HOUSTON M.D. MARILIA BURCH M.D. FINAL REPORT The radiology attending physician has personally reviewed this study, and has reviewed and/or edited this written report and agrees with it. ACC# Date Time Exam [id number] May 30, 2017 13:14:[id number] Abd and Pelvis w/wo EXAMINATION: CT [...] HOUSTON M.D. on May 30 2017 2:06P [id number] Elena WEISS M.D. FINAL REPORT The radiology attending physician has personally reviewed this study, and has reviewed and/or edited this written report and agrees with it. Attending: TADEO IBRAHIM Requesting: TADEO IBRAHIM Requesting Fax: Attending Fax: Attending ID: [id number] Requesting ID: [id number] Report To 1 ID: [id number] Report To 1 Name: , Report To 1 FAX: NextGen Order #: Tadeo Ibrahim MD IMG CT PROCEDURES Edited Result - Final from Last 3 Months or Most Recently Relevant to Health Maintenance Insurance [place] [employer] [facility] ADVANTRA ANTHEM ACCESS CHOICE Member Subscriber Plan / Payer ( fective 2019-Present) Name:Toan Max Relation to Subscriber:Self Name:Toan Max Payer ID:[id number] (NAIC) Type:[facility] Address: [address] [facility] ADVANTRA Advance Directives For more information, please contact: [phone] * Full Code (Latest Code Status on File) Date Activated Date Inactivated Comments 12/09/2023 3:49 PM 12/12/2023 7:38 PM * Full Code Date Activated Date Inactivated Comments 08/18/2023 2:32 PM 08/23/2023 8:00 PM Care Teams Brazing Furnace Operator Relationship Specialty Start Date End Date Britta Hansen MD PCP - General Family Medicine 07/14/23 Khris Goldberg MD [address] [address] Referring Physician Cardiology 07/14/23 Sukh Robledo MD [address] [address] Consulting Physician Cardiothoracic Surgery 07/14/23 Rc Garza MD [address] [address] Referring Physician Cardiology 07/14/23
--- OUTSIDE RECORDS SUMMARY | 2025-04-19 00:54 | XMS_ITS | Clinical Summary ---
Author Organization [facility] Address [address] [place] [address] Care Team Providers Care Carpet Cleaner Name Role Phone Britta Hansen MD Primary Care Provider [phone] Khris Goldberg MD Unavailable [phone] Sukh Robledo MD Unavailable [phone] Rc Garza MD Unavailable [phone] Allergies Active Allergy Reactions Criticality Noted Date [...] important. Assessment & Plan (12/25/2019 11:03 AM MEDICAL ASSISTANT CARDIOLOGY): Needs to lose weight through diet and [...] He Assessment & Plan (12/25/2019 11:02 AM MEDICAL ASSISTANT CARDIOLOGY): Blood pressure is adequately controlled on current [...] was made. Coronary artery disease invo lving [place] coronary artery of [place] heart without angina pectoris 04/22/2015 Overview (02/18/2017): Coronary arteriosclerosis in [place] artery Assessment & Plan (02/01/2022 12:35 PM [...] tabs. Assessment & Plan (12/25/2019 11:02 AM MEDICAL ASSISTANT CARDIOLOGY): He is experiencing stable angina, with exertional [...] Resolved Date Coronary artery disease invo lving [place] coronary artery of [place] heart with unstable angina pectoris 08/15/2023 11/01/2023 [...] made. Assessment & Plan (12/25/2019 11:03 AM MEDICAL ASSISTANT CARDIOLOGY): On chronic lipid lowering therapy with good control. No changes made. Assessment & Plan (08/02/2019 5:41 PM CDT): He is on high-intensity statin therapy. LDL is reasonably controlled. HDL is chronically low. Assessment & Plan (08/11/2018 6:29 PM CDT): On chronic lipid lowering therapy with good control. No changes made. Encounters Date Type Department Care Team Description 01/18/2025 3:30 PM MEDICAL ASSISTANT CARDIOLOGY Office Visit [facility] Medical Group Cardiology at [address] [place] [address] Khris Goldberg MD Hx of CABG (Primary Dx); S/P coronary artery stent placement from Last 3 Months Immunizations Immunization Administration [...] - 11/13/[address] Forde, [address] Forde CORONARY ARTERY BYPASS GRAFT 08/18/2023 x4 LUNG SURGERY 12/09/2023 Right Thoracoscopy, Right Lower Lobectomy Medical History Medical History Date Comments Hyperlipidemia Hypertension CAD (coronary artery disease) Diabetes mellitus (HCC) Sleep apnea Home Cpap Myocardial infarction (HCC) 2000 Chronic kidney disease Cancer (HCC) 2016 Kidney Cancer of lower lobe of right [...] materials from doctor or pharmacy Never 09/19/2023 [facility] Utilities Answer Date Recorded In [...] often do you attend chur ch or confucianist services? More than 4 times per year 12/12/2023 Do you belong to any clubs o r organizations such as caodaism groups, unions, fraternal or athletic groups, or [...] place to sleep or slept in a correction (including now)? No 12/12/2023 Personal Safety Answer Date Recorded Have you ever been in or are you currently in a harmful physical or emotional relationship or is someone making you feel afraid or unsafe? Denies 12/09/2023 Sex and Gender Information Value Date Recorded Sex Assigned at Not on file Legal Sex Male 11:23 AM MEDICAL ASSISTANT CARDIOLOGY Gender Identity Not on file Sexual Orientation Not on file Obstetrics History Last Filed Vital Signs Vital Sign Reading Time Taken Comments Blood Pressure 148/72 01/18/2025 3:16 PM MEDICAL ASSISTANT CARDIOLOGY Pulse 94 01/18/2025 3:16 PM MEDICAL ASSISTANT CARDIOLOGY Temperature 37.1 C (98.7 F) 12/12/2023 12:10 PM MEDICAL ASSISTANT CARDIOLOGY Respiratory Rate 16 01/04/2024 11:11 AM MEDICAL ASSISTANT CARDIOLOGY Oxygen Saturation 96% 01/18/2025 3:16 PM MEDICAL ASSISTANT CARDIOLOGY Inhaled Oxygen Concentration - - Weight 117.5 kg (259 lb) 01/18/2025 3:16 PM MEDICAL ASSISTANT CARDIOLOGY Height 167.6 cm (5' 6) 01/18/2025 3:16 PM MEDICAL ASSISTANT CARDIOLOGY Body Mass Index 41.8 01/18/2025 3:16 PM MEDICAL ASSISTANT CARDIOLOGY Plan of Treatment Health Maintenance Due Date [...] 01/12/2017 Hemoglobin A1C 02/17/2024 08/18/2023, 09/15, 07/11/2017 eGFR 12/11/2024 12/11/2023, 11/15, 12/06/2023, Additional history exists Fall Risk Assessment 12/12/2024 12/12/2023 Lipid Panel 05/18/2025 05/18/2024, 10/14, 04/12/2023, Additional history exists Influenza Vaccine (Season Ended) 2025 10/21/20, 01/17/2016 Abdominal Aortic Aneurysm (A AA) Screen Completed 05/30/2017, 09/16/2014 Medical Devices Implanted Type Area Spa Director Device Identifier Shelf Expiration Date Model / Serial / Lot Bard Peripheral Vascular Bard .25x.25in [place] Thk1.65mm Square [employer] Ptfe [id number] - [id number] Implanted:Qty: 1 on 08/18/2023 by Sukh Robledo MD at [facility] N/A: Heart Bard Peripheral Vascular 08/11/2026 [id number] / / [employer] Device Closure Fibertape Sternal Cerclage Blunt Needle Ar-7289 - [id number] Implanted:Qty: 1 on 08/18/2023 by Sukh Robledo MD at [facility] N/A: Sternum [employer] 06/13/2028 AR-7289 / / [id number] [employer] Device Closure Fibertape Sternal Cerclage Blunt Needle Ar-7289 - [id number] Implanted:Qty: 1 on 08/18/2023 by Sukh Robledo MD at [facility] N/A: Sternum [employer] 06/13/2028 AR-7289 / / [id number] [employer] Device Closure Fibertape Sternal [place]cl[place] Blunt Needle Ar-7289 - [id number] Implanted:Qty: 1 on 08/18/2023 by Sukh Robledo MD at [facility] N/A: Sternum [employer] 06/13/2028 AR-7289 / / [id number] Procedures Procedure Name Priority Date/Time Associated Diagnosis Comments LIPID PANEL Routine 05/18/2024 11:36 AM CDT EGFR Routine 12/11/2023 12:47 AM MEDICAL ASSISTANT CARDIOLOGY HEMOGLOBIN A1C STAT 08/18/2023 8:08 AM CDT [...] EXTERNAL LAB * eGFR (12/11/2023 12:47 AM MEDICAL ASSISTANT CARDIOLOGY) eGFR 81 mL/min/1. 73 m2 [facility] Comment: Interpretive Data Reference Interval Normal [...] reviewed 2021. Blood 12/11/2023 12:4 7 AM MEDICAL ASSISTANT CARDIOLOGY 12/11/2023 1:09 AM MEDICAL ASSISTANT CARDIOLOGY Robbie Meyer PA LAB BLOOD ORDERABLES Final R esult Performing Organization Address [facility] de Phone Number [facility] [address] [facility] Your [place] [address] * (ABNORMAL) Hemoglobin A1c (08/18/2023 8:08 AM CDT) Hgb A1C 6.3(H) 4.0 - 5.6 % [facility] Estimated Average Glucose 134 mg/dL [facility] Comment: The ADA recommends reporting an estimated Average Glucose (eAG) with all Hemoglobin A1c results using the equation derived from a study of 507 normal and diabetic adults. Minority populations were underrepresented and children were not included. (Diabetes Care 31:1875-3681, 2008). The eAG is not equivalent to a fasting glucose. Blood 08/18/2023 8:08 AM CDT 08/18/2023 8:21 AM CDT Monisha Short PROPOSAL DIRECTOR LAB BLOOD ORDERABLES Final Resul t Performing Organization Address [facility] de Phone Number [facility] [address] Department Your [place] [address] * CT Abdomen Pelvis W WO Contrast (05/30/2017 6:14 PM CDT) Anatomical Region Laterality Modality Body N/A Computed Tomogra phy 05/30/2017 6:14 PM CDT Narrative 05/30/2017 6:14 PM CDT CHRISTOS HOUSTON M.D. MARILIA BURCH M.D. FINAL REPORT The radiology attending physician has personally reviewed this study, and has reviewed and/or edited this written report and agrees with it. ACC# Date Time Exam [id number] May 30, 2017 13:14:[id number] Abd and Pelvis w/wo EXAMINATION: CT [...] HOUSTON M.D. on May 30 2017 2:06P [id number] Elena WEISS M.D. FINAL REPORT The radiology attending physician has personally reviewed this study, and has reviewed and/or edited this written report and agrees with it. Attending: TADEO IBRAHIM Requesting: TADEO IBRAHIM Requesting Fax: Attending Fax: Attending ID: [id number] Requesting ID: [id number] Report To 1 ID: [id number] Report To 1 Name: , Report To 1 FAX: NextGen Order #: Procedure Note Miscellaneous, Not In File - 09/04/2017 Rosa Elena WEISS M.D. FINAL REPORT The radiology attending physician has personally reviewed this study, and has reviewed and/or edited this written report and agrees with it. ACC# Date Time Exam [id number] May 30, 2017 13:14:[id number] Abd and Pelvis w/wo EXAMINATION: CT [...] HOUSTON M.D. on May 30 2017 2:06P [id number] Elena WEISS M.D. FINAL REPORT The radiology attending physician has personally reviewed this study, and has reviewed and/or edited this written report and agrees with it. Attending: TADEO IBRAHIM Requesting: TADEO IBRAHIM Requesting Fax: Attending Fax: Attending ID: [id number] Requesting ID: [id number] Report To 1 ID: [id number] Report To 1 Name: , Report To 1 FAX: NextGen Order #: Tadeo Ibrahim MD IMG CT PROCEDURES Edited Result - Final from Last 3 Months or Most Recently Relevant to Health Maintenance Insurance [place] [employer]TRA [facility] ADVANTRA ANTHEM ACCESS CHOICE Member Subscriber Plan / Payer (Ef fective 2019-Present) Name:Toan Max Relation to Subscriber:Self Name:Toan Max Payer ID:[id number] ([employer]) Type:[facility] Address: [address] ADVANTRA [facility] ADVANTRA [employer]ET[employer] [facility] ADVANTRA Advance Directives For more information, please contact: [phone] * Full Code (Latest Code Status on File) Date Activated Date Inactivated Comments 12/09/2023 3:49 PM 12/12/2023 7:38 PM * Full Code Date Activated Date Inactivated Comments 08/18/2023 2:32 PM 08/23/2023 8:00 PM Care Teams Carpet Cleaner Relationship Specialty Start Date End Date Britta Hansen MD PCP - General Family Medicine 07/14/23 Khris Goldberg MD [address] [place] [address] Referring Physician Cardiology 07/14/23 Sukh Robledo MD [address] [address] Consulting Physician Cardiothoracic Surgery 07/14/23 Rc Garza MD [address] [place] [address] Referring Physician Cardiology 07/14/23
[2025-04-19 09:40] VITALS: BP 178/78; PULSE 65; RESP 20; TEMP 36.1; O2SAT 98
[2025-04-19] MEDS: LACTATED RINGERS 1,000 ML 150 ML IV CONT (09:49)
[2025-04-19 09:57] LABS: Glucose Point of Care 161 mg/dl (65-105)
--- NOTE | 2025-04-19 09:57 | WPDANESEPPF ---
Anes - Initial Pre Proc Eval Procedure: Operation Date: 04/19/25 10:30 Proposed Procedures p Esophagogastroduodenoscopy & Colonoscopy - Donnie Shore MD Date/Time: 04/19/25 09:57 Surgeon: Donnie Shore MD Pre Op Diagnosis: Iron deficiency anemia, unspecified Patient Data Age: 74 Gender: M Height: 1.65 m Weight: 113.1 kg Last Vital Signs Temp 36.1 C L 04/19/25 09:40 Pulse 65 04/19/25 09:40 Resp 20 04/19/25 09:40 BP 178/78 H 04/19/25 09:40 Pulse Ox 98 04/19/25 09:40 O2 Del Method Room Air 04/19/25 09:40 Allergies Allergy/AdvReac Type Severity Reaction Status Date / Time bee pollen Allergy Severe Rash Verified 04/19/25 09:37 BEE STINGS Allergy Severe Anaphylaxis Uncoded 04/19/25 09:37 Home Medications ?Medication ?Instructions ?Recorded ?Confirmed ?Type amlodipine 10 mg tablet 10 mg PO DAILY 01/25/20 04/19/25 History aspirin 81 mg tablet,delayed 81 mg PO DAILY 01/25/20 04/19/25 History release (Aspir-) clopidogrel 75 mg tablet 75 mg PO DAILY 01/25/20 04/19/25 History fenofibrate nanocrystallized 145 145 mg PO DAILY 01/25/20 04/19/25 History mg tablet indapamide 2.5 mg tablet 2.5 mg PO QAM 01/25/20 04/10/25 History omeprazole 20 mg capsule,delayed 20 mg PO DAILY 10/29/20 04/19/25 History release lancets 30 gauge (OneTouch Delica #100 ea 10/30/20 12/21/24 Rx Plus Lancet) atorvastatin 40 mg tablet 40 mg PO DAILY #90 tabs 01/10/23 04/10/25 Rx spironolactone 25 mg tablet 25 mg PO DAILY #100 tabs 01/25/23 04/10/25 Rx nitroglycerin 0.4 mg sublingual 0.4 mg sublingual Q5M PRN chest 04/12/23 04/10/25 Rx tablet pain #25 tabs lisinopril 30 mg tablet 30 mg PO BID 07/12/23 04/10/25 History blood sugar diagnostic (OneTouch #100 ea 07/24/23 12/21/24 Rx Verio test strips) metformin 500 mg tablet,extended 1,000 mg (2 x 500 mg) PO BID 90 03/08/24 04/19/25 Rx release 24 hr days #360 tabs metoprolol tartrate 100 mg tablet 100 mg PO BID #180 tabs 05/14/24 04/19/25 Rx sitagliptin phosphate 100 mg 100 mg PO DAILY #90 tabs 07/20/24 04/19/25 Rx tablet (Januvia) glimepiride 4 mg tablet 8 mg (2 x 4 mg) PO DAILY #180 tabs 09/06/24 04/19/25 Rx albuterol sulfate 90 mcg/actuation 1 inh inhalation Q4H PRN shortness 11/21/24 04/19/25 Rx aerosol inhaler of breath or wheezing #8.5 grams Auto -pap 10-13 cm H2O with heated #1 ea 01/23/25 Rx humidified air empagliflozin 10 mg tablet 10 mg PO DAILY #30 tabs 01/24/25 04/19/25 Rx (Jardiance) ferrous sulfate 325 mg (65 mg 325 mg PO DAILY #100 tabs 01/30/25 04/19/25 Rx iron) tablet budesonide-formoterol HFA 160 2 puff inhalation Q12H #10.2 grams 02/25/25 04/19/25 Rx mcg-4.5 mcg/actuation aerosol inhaler (Symbicort) doxazosin 2 mg tablet 2 mg PO DAILY #90 tabs 04/01/25 04/19/25 Rx tramadol 50 mg tablet 50 mg PO Q8H PRN pain #30 tabs 04/03/25 04/10/25 Rx VITAMIN B12 IM MONTHLY 04/10/25 History atorvastatin 80 mg tablet 80 mg PO QPM 04/10/25 04/19/25 History vitamin B complex 1 cap PO DAILY 04/10/25 04/19/25 History Laboratory Tests 04/19/25 09:53 POC Capillary Glucose 161 H mg/dl (65-105) Patient hx anesthesia problems: none Family hx anesthesia problems: none Results Review: All pre-operative results and documents have been reviewed as part of the pre-operative evaluation. [facility] Past Medical History Medical History Metastatic renal cell carcinoma to lung Bilateral knee pain Chronic kidney disease Coronary artery disease Hyperlipidemia LDL goal <70 Type 2 diabetes mellitus with hyperglycemia Primary hypertension Family History Family History Father Family history of cardiovascular disease Family history of coronary artery disease Family history of Parkinson's disease Acute myocardial infarction Mother Family history of cardiovascular disease Family history of coronary artery disease Acute myocardial infarction Sibling Family history of cardiovascular disease Family history of coronary artery disease Social History Social History Smoking packs per day: 1 Smoking cigarettes per day: 20.0 Years smoked: 12 Smoking pack-years: 12.00 Smoking status: Former smoker Tobacco type: cigarettes Second hand tobacco smoke exposure: No Smoking end date: 11/14/96 Alcohol intake: never Substance use: never Substance use type: does not use Lack of Transportation: No Lack of Food: Never True Current Housing: I Have Housing Concerned About Future Housing: No Difficulty Paying Gas/Electric Bills: No Difficulty Paying for Meds: No Currently Unemployed: No Education: High School Diploma/GED Difficulty w/ Childcare or Family Care: No Living arrangements: with family Occupation/Education: retired Gender identity (if verbalized by the patient): Male Sexual Orientation (if Verbalized by the Patient): Straight or Heterosexual Spiritual care concerns: No Anes - Eval Final PreProcedure Day of Procedure 04/19/25 09:57 Patient weight: morbidly obese Heart: irregular rhythm Lungs: clear to auscultation Airway: Mallampati scale class II Neurological: alert and oriented Last oral intake: >/= 8 hours ASA classification: IV Emergent: no Anesthetic plan: proceed Anesthesia type and monitoring: general GIVS and standard monitoring Results Review: All pre-operative results and documents have been reviewed as part of the pre-operative evaluation. Informed Consent: The patient's anesthetic plan and its attendant risks and benefits were discussed with the patient/family/POA. Questions were solicited and answers provided to the satisfaction of the patient/family/POA.
--- NOTE | 2025-04-19 10:07 | PM.HPGS ---
History of Present Illness History of Present Illness Consent: Risks, benefits, and alternatives have been discussed and questions answered. Patient agrees to proceed with procedure. Chief complaint: Iron deficiency anemia, unspecified Narrative: Toan Max is a 74 year old male here for first egd and colonoscopy, noted to have FILIPPO, no overt gib Review of Systems Review of Systems: All systems reviewed & are unremarkable except as noted in HPI and below PMFSH Past Medical History Medical History Metastatic renal cell carcinoma to lung Bilateral knee pain Chronic kidney disease Coronary artery disease Hyperlipidemia LDL goal <70 Type 2 diabetes mellitus with hyperglycemia Primary hypertension Family History Family History Father Family history of cardiovascular disease Family history of coronary artery disease Family history of Parkinson's disease Acute myocardial infarction Mother Family history of cardiovascular disease Family history of coronary artery disease Acute myocardial infarction Sibling Family history of cardiovascular disease Family history of coronary artery disease Social History Social History Smoking packs per day: 1 Smoking cigarettes per day: 20.0 Years smoked: 12 Smoking pack-years: 12.00 Smoking status: Former smoker Tobacco type: cigarettes Second hand tobacco smoke exposure: No Smoking end date: 11/14/96 Alcohol intake: never Substance use: never Substance use type: does not use Lack of Transportation: No Lack of Food: Never True Current Housing: I Have Housing Concerned About Future Housing: No Difficulty Paying Gas/Electric Bills: No Difficulty Paying for Meds: No Currently Unemployed: No Education: High School Diploma/GED Difficulty w/ Childcare or Family Care: No Living arrangements: with family Occupation/Education: retired Gender identity (if verbalized by the patient): Male Sexual Orientation (if Verbalized by the Patient): Straight or Heterosexual Spiritual care concerns: No Meds Home Medications and Allergies Home Medications ?Medication ?Instructions ?Recorded ?Confirmed ?Type amlodipine 10 mg tablet 10 mg PO DAILY 01/25/20 04/19/25 History aspirin 81 mg tablet,delayed 81 mg PO DAILY 01/25/20 04/19/25 History release (Aspir-) clopidogrel 75 mg tablet 75 mg PO DAILY 01/25/20 04/19/25 History fenofibrate nanocrystallized 145 145 mg PO DAILY 01/25/20 04/19/25 History mg tablet indapamide 2.5 mg tablet 2.5 mg PO QAM 01/25/20 04/10/25 History omeprazole 20 mg capsule,delayed 20 mg PO DAILY 10/29/20 04/19/25 History release lancets 30 [facility] 10/30/20 12/21/24 Rx Plus Lancet) atorvastatin 40 mg tablet 40 mg PO DAILY #90 tabs 01/10/23 04/10/25 Rx spironolactone 25 mg tablet 25 mg PO DAILY #100 tabs 01/25/23 04/10/25 Rx nitroglycerin 0.4 mg sublingual 0.4 mg sublingual Q5M PRN chest 04/12/23 04/10/25 Rx tablet pain #25 tabs lisinopril 30 mg tablet 30 mg PO BID 07/12/23 04/10/25 History blood sugar diagnostic ([facility] 07/24/23 12/21/24 Rx Verio test strips) metformin 500 mg tablet,extended 1,000 mg (2 x 500 mg) PO BID 90 03/08/24 04/19/25 Rx release 24 hr days #360 tabs metoprolol tartrate 100 mg tablet 100 mg PO BID #180 tabs 05/14/24 04/19/25 Rx sitagliptin phosphate 100 mg 100 mg PO DAILY #90 tabs 07/20/24 04/19/25 Rx tablet (Januvia) glimepiride 4 mg tablet 8 mg (2 x 4 mg) PO DAILY #180 tabs 09/06/24 04/19/25 Rx albuterol sulfate 90 mcg/actuation 1 inh inhalation Q4H PRN shortness 11/21/24 04/19/25 Rx aerosol inhaler of breath or wheezing #8.5 grams Auto -pap 10-13 cm H2O with heated #1 ea 01/23/25 Rx humidified air empagliflozin 10 mg tablet 10 mg PO DAILY #30 tabs 01/24/25 04/19/25 Rx (Jardiance) ferrous sulfate 325 mg (65 mg 325 mg PO DAILY #100 tabs 01/30/25 04/19/25 Rx iron) tablet budesonide-formoterol HFA 160 2 puff inhalation Q12H #10.2 grams 02/25/25 04/19/25 Rx mcg-4.5 mcg/actuation aerosol inhaler (Symbicort) doxazosin 2 mg tablet 2 mg PO DAILY #90 tabs 04/01/25 04/19/25 Rx tramadol 50 mg tablet 50 mg PO Q8H PRN pain #30 tabs 04/03/25 04/10/25 Rx VITAMIN B12 IM MONTHLY 04/10/25 History atorvastatin 80 mg tablet 80 mg PO QPM 04/10/25 04/19/25 History vitamin B complex 1 cap PO DAILY 04/10/25 04/19/25 History Allergies Allergy/AdvReac Type Severity Reaction Status Date / Time bee pollen Allergy Severe Rash Verified 04/19/25 09:37 BEE STINGS Allergy Severe Anaphylaxis Uncoded 04/19/25 09:37 Vital Signs Vital Signs - 24 hr 04/19/25 09:40 Temperature 96.9 F L Pulse Rate 65 Respiratory Rate 20 Blood Pressure 178/78 H Pulse Oximetry 98 Oxygen Delivery Room Air Exam Const: General: comfortable and no acute distress HENMT: Face/Nose/Sinus: Normal nares present Eyes: General: appearance normal, both eyes and all related structures Neck: Neck: no JVD Resp: Auscultation: clear to auscultation bilaterally Cardio: Rate: regular rate Rhythm: regular rhythm GI: Inspection: non-distended GI Palp: Yes Soft to palpation Skin: General skin exam: normal color Neuro: General: gait normal Speech: normal speech Extrem: General: normal to inspection Psych: Mental Status: mental status grossly normal Assessment and Plan Assessment and plan (1) Iron deficiency anemia: Code(s): D50.9 - Iron deficiency anemia, unspecified Status: Acute Assessment and Plan: egd and colonoscopy to assess if gi source of anemia he is using plavix
[2025-04-19] MEDS: BENZOCAINE (*SP) 60 ML SPRAY CAN (HURRICAINE) 1 SPRAY MUCOUS MEM (10:11)
--- NOTE | 2025-04-19 10:20 | SUR.OPER ---
EGD [id number]. Colonoscopy start time 1020.
--- NOTE | 2025-04-19 10:29 | S_PTH ---
PATIENT: Toan Max LOC: [facility]#:[id number] AGE/SX: 74/M ROOM: RE04/19/[address]: Donnie Shore MD : 1950 BED: DIS: 04/19/2025 SPEC #: [id number] RECD: 04/19/25 11:27 STATUS: LEE BARONE #: [id number] NORMAN: 04/19/25 10:[address]: Donnie Shore DEPT: [facility] Surgical RECD BY: Anastasia Good ENTERED: 04/19/25 11:30 SP TYPE: Surgical OTHR DR: Britta HansenMD Tissues: A - Gastric Biopsy B - Small Bowel Bx C - Colon Polypectomy Procedures: Hematoxylin and Eosin Stain Gross and Microscopic Level 4
[2025-04-19 10:32] VITALS: BP 149/101; PULSE 109; RESP 21; O2SAT 99
[2025-04-19 10:42] VITALS: BP 145/81; PULSE 101; RESP 22; O2SAT 97
[2025-04-19 10:52] VITALS: BP 174/93; PULSE 94; RESP 25; O2SAT 98
== END 2025-04-19 11:08 | disposition home or self-care (01) ==
PROVIDERS: PCP Family Medicine; Referring Provider Family Medicine; Visit Provider Internal Medicine Gastroenterology
PROC: 0DJ08ZZ Inspection of Upper Intestinal Tract, Via Natural or Artificial Opening Endoscopic (ICD-10-PCS; CPT 45378; principal; 2025-04-19 10:30)
DX: D50.9 Iron deficiency anemia, unspecified (principal); K63.5 Polyp of colon; K64.8 Other hemorrhoids; K57.30 Diverticulosis of large intestine without perforation or abscess without bleeding; E78.5 Hyperlipidemia, unspecified; I25.10 Atherosclerotic heart disease of native coronary artery without angina pectoris; E11.65 Type 2 diabetes mellitus with hyperglycemia; E11.22 Type 2 diabetes mellitus with diabetic chronic kidney disease; I12.9 Hypertensive chronic kidney disease with stage 1 through stage 4 chronic kidney disease, or unspecified chronic kidney disease; N18.9 Chronic kidney disease, unspecified; E66.01 Morbid (severe) obesity due to excess calories; Z68.41 Body mass index [BMI] 40.0-44.9, adult; Z79.82 Long term (current) use of aspirin; Z79.02 Long term (current) use of antithrombotics/antiplatelets; Z79.84 Long term (current) use of oral hypoglycemic drugs; Z79.51 Long term (current) use of inhaled steroids; Z79.891 Long term (current) use of opiate analgesic; Z87.891 Personal history of nicotine dependence; Z85.118 Personal history of other malignant neoplasm of bronchus and lung; Z82.49 Family history of ischemic heart disease and other diseases of the circulatory system
CPT/HCPCS: 43239; 45385; 82948; 88305; J2003; J2704; J7120

== ENCOUNTER 2025-05-23 05:42 | Outpatient (CLI) | payer MEDICARE, SELFPAY ==
--- OUTSIDE RECORDS SUMMARY | 2025-05-23 05:44 | XMS_ITS | Referral Summary ---
Author Organization [facility] Address [address] [place] [address] Care Team Providers Care Roofer Apprentice Name Role Phone Britta Hansen MD Primary Care Provider [phone] Khris Goldberg MD Unavailable [phone] Sukh Robledo MD Unavailable [phone] Rc Garza MD Unavailable [phone] Allergies Active Allergy Reactions Criticality Noted Date [...] MOUTH DAILY 90 tablet 1 025 Active atorvastatin (LIPITOR) 80 mg tablet TAKE 1 TABLET(80 MG) BY MOUTH EVERY NIGHT 90 tablet 2 025 Active fenofibrate nanocrystallized (TRICOR) 145 mg tablet TAKE 1 TABLET(145 MG) BY MOUTH DAILY 90 tablet 1 025 Active amLODIPine (NORVASC) 10 mg tablet TAKE 1 TABLET(10 MG) BY MOUTH DAILY 90 tablet 2 025 Active amLODIPine (NORVASC) 10 mg tablet [...] important. Assessment & Plan (12/25/2019 11:03 AM HEATING AND BLENDING SUPERVISOR): Needs to lose weight through diet and [...] He Assessment & Plan (12/25/2019 11:02 AM HEATING AND BLENDING SUPERVISOR): Blood pressure is adequately controlled on current [...] was made. Coronary artery disease invo lving alutiiq coronary artery of alutiiq heart without angina pectoris 04/22/2015 Overview (02/18/2017): Coronary arteriosclerosis in alutiiq artery Assessment & Plan (02/01/2022 12:35 PM [...] tabs. Assessment & Plan (12/25/2019 11:02 AM HEATING AND BLENDING SUPERVISOR): He is experiencing stable angina, with exertional [...] Resolved Date Coronary artery disease invo lving alutiiq coronary artery of alutiiq heart with unstable angina pectoris 08/15/2023 11/01/2023 [...] made. Assessment & Plan (12/25/2019 11:03 AM HEATING AND BLENDING SUPERVISOR): On chronic lipid lowering therapy with good [...] materials from doctor or pharmacy Never 09/19/2023 [facility] Utilities Answer Date Recorded In the [...] often do you attend chur ch or christian services? More than 4 times per year 12/12/2023 Do you belong to any clubs o r organizations such as sikhism groups, unions, fraternal or athletic groups, or [...] place to sleep or slept in a fci (including now)? No 12/12/2023 Personal Safety Answer Date Recorded Have you ever been in or are you currently in a harmful physical or emotional relationship or is someone making you feel afraid or unsafe? Denies 12/09/2023 Sex and Gender Information Value Date Recorded Sex Assigned at Not on file Legal Sex Male 11:23 AM HEATING AND BLENDING SUPERVISOR Gender Identity Not on file Sexual Orientation Not on file Last Filed Vital Signs Vital Sign Reading Time Taken Comments Blood Pressure 148/72 01/18/2025 3:16 PM HEATING AND BLENDING SUPERVISOR Pulse 94 01/18/2025 3:16 PM HEATING AND BLENDING SUPERVISOR Temperature 37.1 C (98.7 F) 12/12/2023 12:10 PM HEATING AND BLENDING SUPERVISOR Respiratory Rate 16 01/04/2024 11:11 AM HEATING AND BLENDING SUPERVISOR Oxygen Saturation 96% 01/18/2025 3:16 PM HEATING AND BLENDING SUPERVISOR Inhaled Oxygen Concentration - - Weight 117.5 kg (259 lb) 01/18/2025 3:16 PM HEATING AND BLENDING SUPERVISOR Height 167.6 cm (5' 6) 01/18/2025 3:16 PM HEATING AND BLENDING SUPERVISOR Body Mass Index 41.8 01/18/2025 3:16 PM HEATING AND BLENDING SUPERVISOR Plan of Treatment Not on file Medical Devices Implanted Type Area Junior Systems Engineer Device Identifier Shelf Expiration Date Model / Serial / Lot Bard Peripheral Vascular Bard .25x.25in Jolley Thk1.65mm Square [employer] Ptfe [id number] - [id number] Implanted:Qty: 1 on 08/18/2023 by Sukh Robledo MD at [facility] N/A: Heart Bard Peripheral Vascular 08/11/2026 [id number] / / [employer] Device Closure Fibertape Sternal Cerclage Blunt Needle Ar-7289 - [id number] Implanted:Qty: 1 on 08/18/2023 by Sukh Robledo MD at [facility] N/A: Sternum [employer] 06/13/2028 AR-7289 / / [id number] [employer] Device Closure Fibertape Sternal Cerclage Blunt Needle Ar-7289 - [id number] Implanted:Qty: 1 on 08/18/2023 by Sukh Robledo MD at [facility] N/A: Sternum [employer] 06/13/2028 AR-7289 / / [id number] [employer] Device Closure Fibertape Sternal Cerclage Blunt Needle Ar-7289 - [id number] Implanted:Qty: 1 on 08/18/2023 by Sukh Robledo MD at [facility] N/A: Sternum [employer] 06/13/2028 AR-7289 / / [id number] Procedures Procedure Name Priority Date/Time Associated Diagnosis Comments LIPID PANEL Routine 05/18/2024 11:36 AM CDT EGFR Routine 12/11/2023 12:47 AM HEATING AND BLENDING SUPERVISOR HEMOGLOBIN A1C STAT 08/18/2023 8:08 AM CDT [...] LAB Blood 05/18/2024 11:3 6 AM CDT Historical Provider MD LAB BLOOD ORDERABLES Tiffany l Result EXTERNAL LAB * eGFR (12/11/2023 12:47 AM HEATING AND BLENDING SUPERVISOR) eGFR 81 mL/min/1. 73 m2 [facility] Comment: Interpretive Data Reference Interval Normal >/= [...] reviewed 2021. Blood 12/11/2023 12:4 7 AM HEATING AND BLENDING SUPERVISOR 12/11/2023 1:09 AM HEATING AND BLENDING SUPERVISOR Robbie CUN[place]AM LAB BLOOD ORDERABLES Final R esult [facility] [address] Department [place] [address] * (ABNORMAL) Hemoglobin A1c (08/18/2023 8:08 AM CDT) Hgb A1C 6.3(H) 4.0 - 5.6 % [facility] Estimated Average Glucose 134 mg/dL [facility] Comment: The ADA recommends reporting an estimated Average Glucose (eAG) with all Hemoglobin A1c results using the equation derived from a study of 507 normal and diabetic adults. Minority populations were underrepresented and children were not included. (Diabetes Care 31:8705-7031, 2008). The eAG is not equivalent to a fasting glucose. Blood 08/18/2023 8:08 AM CDT 08/18/2023 8:21 AM CDT us Monisha Short NP LAB BLOOD ORDERABLES Final Resul t [facility] [address] Department [place] [address] * CT Abdomen Pelvis W WO Contrast (05/30/2017 6:14 PM CDT) Anatomical Region Laterality Modality Body N/A Computed Tomogra phy 05/30/2017 6:14 PM CDT Narrative 05/30/2017 6:14 PM CDT CHRISTOS HOUSTON M.D. MARILIA BURCH M.D. FINAL REPORT The radiology attending physician has personally reviewed this study, and has reviewed and/or edited this written report and agrees with it. ACC# Date Time Exam [id number] May 30, 2017 13:14:[id number] Abd and Pelvis w/wo EXAMINATION: CT [...] HOUSTON M.D. on May 30 2017 2:06P [id number] Elena SNOW M.D. FINAL REPORT The radiology attending physician has personally reviewed this study, and has reviewed and/or edited this written report and agrees with it. Attending: TADEO IBRAHIM Requesting: TADEO IBRAHIM Requesting Fax: Attending Fax: Attending ID: [id number] Requesting ID: [id number] Report To 1 ID: [id number] Report To 1 Name: , Report To 1 FAX: NextGen Order #: Procedure Note Miscellaneous, Not In File - 09/04/2017 CHRISTOS HOUSTON M.D. MARILIA BURCH M.D. FINAL REPORT The radiology attending physician has personally reviewed this study, and has reviewed and/or edited this written report and agrees with it. ACC# Date Time Exam [id number] May 30, 2017 13:14:[id number] Abd and Pelvis w/wo EXAMINATION: CT [...] HOUSTON M.D. on May 30 2017 2:06P [id number] CELSO, M.D. HAMZA KIERSTEN, M.D. FINAL REPORT The radiology attending physician has personally reviewed this study, and has reviewed and/or edited this written report and agrees with it. Attending: TADEO IBRAHIM Requesting: TADEO IBRAHIM Requesting Fax: Attending Fax: Attending ID: [id number] Requesting ID: [id number] Report To 1 ID: [id number] Report To 1 Name: , Report To 1 FAX: NextGen Order #: Tadeo Ibrahim MD IMG CT PROCEDURES Edited Result - Final from Last 3 Months or Most Recently Relevant to Health Maintenance Insurance [facility] ANTHEM ACCESS CHOICE Member Subscriber Plan / Payer ( fective 2019-Present) Name:Toan Max Relation to Subscriber:Self Name:Toan Max Payer ID:[id number] (NAIC) Type:[facility] Address: [address] [facility] [employer]ANT [facility] [employer]TRA Advance Directives For more information, please contact: [phone] * Full Code (Latest Code Status on File) Date Activated Date Inactivated Comments 12/09/2023 3:49 PM 12/12/2023 7:38 PM * Full Code Date Activated Date Inactivated Comments 08/18/2023 2:32 PM 08/23/2023 8:00 PM Care Teams Roofer Apprentice Relationship Specialty Start Date End Date Britta Hansen MD PCP - General Family Medicine 07/14/23 Khris Goldberg MD [address] [place] [id number] Referring Physician Cardiology 07/14/23 Sukh Robledo MD [address] [place] [address] Consulting Physician Cardiothoracic Surgery 07/14/23 Rc Garza MD [address] [address] Referring Physician Cardiology 07/14/23
--- OUTSIDE RECORDS SUMMARY | 2025-05-23 05:44 | XMS_ITS | Clinical Summary ---
Author Organization [facility] Address [address] [address] Phone Care Team Providers Care Inspector Type Name Role Phone Britta Hansen MD Primary Care Provider [phone] Allergies Active Allergy Reactions Criticality Noted Date [...] directed 0 Active Lancets (OneTouch Delica Plus Aditlf68T) misc 2 (two) times a day for [...] control. No changes made. Coronary arteriosclerosis in ione artery 04/22 Overview (07/13/2019): Coronary arteriosclerosis in ione artery Last Assessment & Plan: No symptoms [...] and Medium Risk (2 of 3 - PCV20 or PCV21) 01/12/2018 01/12/2017 Influenza Vaccine (#1) 2025 01/17/2016 Insurance [employer] Care Teams Inspector Type Relationship Specialty Start Date End Date Britta Hansen MD [address] [place] [address] PCP - General Internal Medicine 01/25/22
--- OUTSIDE RECORDS SUMMARY | 2025-05-23 05:44 | XMS_ITS | Clinical Summary ---
[facility] Address [address] [place] [address] Care Team Providers Care Social And Human Services Assistant Name Role Phone Kayleigh Kelley MD Primary [...] on file Legal Sex Male 8:40 AM BUILDING MAINTENANCE SUPERINTENDENT Gender Identity Not on file Sexual Orientation [...] - PPSV23) 03/09/2017 01/12/2017 INFLUENZA VACCINE (#1) 2025 10/21/2017, 2015 Care Teams Social And Human Services Assistant Relationship Specialty Start Date End Date Kayleigh Kelley MD [address] [place] [address] PCP - General Family Practice 01/29/20
--- OUTSIDE RECORDS SUMMARY | 2025-05-23 05:44 | XMS_ITS | Clinical Summary ---
Author Organization [facility] Address [address] [place] [address] Care Team Providers Care Career Transition Specialist Name Role Phone Britta Hansen MD Primary Care Provider [phone] Khris Goldberg MD Unavailable [phone] Sukh Robledo MD Unavailable [phone] Rc Garza MD Unavailable [phone] Allergies Active Allergy Reactions Criticality Noted Date [...] important. Assessment & Plan (12/25/2019 11:03 AM FILM SPLICER): Needs to lose weight through diet and [...] He Assessment & Plan (12/25/2019 11:02 AM FILM SPLICER): Blood pressure is adequately controlled on current [...] was made. Coronary artery disease invo lving [place] coronary artery of [place] heart without angina pectoris 04/22/2015 Overview (02/18/2017): Coronary arteriosclerosis in [place] artery Assessment & Plan (02/01/2022 12:35 PM [...] tabs. Assessment & Plan (12/25/2019 11:02 AM FILM SPLICER): He is experiencing stable angina, with exertional [...] Resolved Date Coronary artery disease invo [place]ving [place] coronary artery of [place] heart with unstable angina pectoris 08/15/2023 11/01/2023 [...] made. Assessment & Plan (12/25/2019 11:03 AM FILM SPLICER): On chronic lipid lowering therapy with good [...] materials from doctor or pharmacy Never 09/19/2023 [facility] Utilities Answer Date Recorded In the past 12 months has th e [employer], gas, oil, or water company threatened to [...] often do you attend chur ch or mormon services? More than 4 times per year 12/12/2023 Do you belong to any clubs o r organizations such as scientologist groups, unions, fraternal or athletic groups, or [...] place to sleep or slept in a intermediate (including now)? No 12/12/2023 Personal Safety Answer Date Recorded Have you ever been in or are you currently in a harmful physical or emotional relationship or is someone making you feel afraid or unsafe? Denies 12/09/2023 Sex and Gender Information Value Date Recorded Sex Assigned at Not on file Legal Sex Male 11:23 AM FILM SPLICER Gender Identity Not on file Sexual Orientation Not on file Obstetrics History Last Filed Vital Signs Vital Sign Reading Time Taken Comments Blood Pressure 148/72 01/18/2025 3:16 PM FILM SPLICER Pulse 94 01/18/2025 3:16 PM FILM SPLICER Temperature 37.1 C (98.7 F) 12/12/2023 12:10 PM FILM SPLICER Respiratory Rate 16 01/04/2024 11:11 AM FILM SPLICER Oxygen Saturation 96% 01/18/2025 3:16 PM FILM SPLICER Inhaled Oxygen Concentration - - Weight 117.5 kg (259 lb) 01/18/2025 3:16 PM FILM SPLICER Height 167.6 cm (5' 6) 01/18/2025 3:16 PM FILM SPLICER Body Mass Index 41.8 01/18/2025 3:16 PM FILM SPLICER Plan of Treatment Health Maintenance Due Date [...] 10/14, 04/12/2023, Additional history exists Influenza Vaccine (#1) 2025 10/21/2017, 2015 Abdominal Aortic Aneurysm (A AA) Screen Completed 05/30/2017, 09/16/2014 Medical Devices Implanted Type Area Mechanical Test Engineer Device Identifier Shelf Expiration Date Model / Serial / Lot Bard Peripheral Vascular Bard .25x.25in Downey Thk1.65mm Square [employer] Ptfe 820203 - [id number] Implanted:Qty: 1 on 08/18/2023 by Sukh Robledo MD at [facility] N/A: Heart Bard Peripheral Vascular 08/11/2026 [id number] / / [employer] Device Closure Fibertape Sternal [place] Blunt Needle Ar-7289 - [id number] Implanted:Qty: 1 on 08/18/2023 by Sukh Robledo MD at [facility] N/A: Sternum [employer] 06/13/2028 AR-7289 / / [id number] [employer] Device Closure Fibertape Sternal [place] Blunt Needle Ar-7289 - [id number] Implanted:Qty: 1 on 08/18/2023 by Sukh Robledo MD at [facility] N/A: Sternum [employer] 06/13/2028 AR-7289 / / [id number] [employer] Device Closure Fibertape Sternal [place] Blunt Needle Ar-7289 - [id number] Implanted:Qty: 1 on 08/18/2023 by Sukh Robledo MD at [facility] N/A: Sternum [employer] 06/13/2028 AR-7289 / / [id number] Procedures Procedure Name Priority Date/Time Associated Diagnosis Comments LIPID PANEL Routine 05/18/2024 11:36 AM CDT EGFR Routine 12/11/2023 12:47 AM FILM SPLICER HEMOGLOBIN A1C STAT 08/18/2023 8:08 AM CDT [...] EXTERNAL LAB * eGFR (12/11/2023 12:47 AM FILM SPLICER) eGFR 81 mL/min/1. 73 m2 [facility] Comment: Interpretive Data Reference Interval Normal [...] reviewed 2021. Blood 12/11/2023 12:4 7 AM FILM SPLICER 12/11/2023 1:09 AM FILM SPLICER us Robbie [place] LAB BLOOD ORDERABLES Final R esult Performing Organization Address City/[facility] de Phone Number [facility] [address] [place] [address] * (ABNORMAL) Hemoglobin A1c (08/18/2023 8:08 AM CDT) Hgb A1C 6.3(H) 4.0 - 5.6 % [facility] Estimated Average Glucose 134 mg/dL [facility] Comment: The ADA recommends reporting an estimated Average Glucose (eAG) with all Hemoglobin A1c results using the equation derived from a study of 507 normal and diabetic adults. Minority populations were underrepresented and children were not included. (Diabetes Care 31:8030-6998, 2008). The eAG is not equivalent to a fasting glucose. Blood 08/18/2023 8:08 AM CDT 08/18/2023 8:21 AM CDT Monisha Short NP LAB BLOOD ORDERABLES Final Resul t Performing Organization Address [facility] de Phone Number [facility] [address] Department [place] [address] * CT Abdomen Pelvis W WO Contrast (05/30/2017 6:14 PM CDT) Anatomical Region Laterality Modality Body N/A Computed Tomogra phy 05/30/2017 6:14 PM CDT Narrative 05/30/2017 6:14 PM CDT CHRISTOS HOUSTON M.D. MARILIA BURCH M.D. FINAL REPORT The radiology attending physician has personally reviewed this study, and has reviewed and/or edited this written report and agrees with it. ACC# Date Time Exam [id number] May 30, 2017 13:14:[id number] Abd and Pelvis w/wo EXAMINATION: CT [...] HOUSTON M.D. on May 30 2017 2:06P [id number] Elena SNOW M.D. FINAL REPORT The radiology attending physician has personally reviewed this study, and has reviewed and/or edited this written report and agrees with it. Attending: TADEO IBRAHIM Requesting: TADEO IBRAHIM Requesting Fax: Attending Fax: Attending ID: [id number] Requesting ID: [id number] Report To 1 ID: [id number] Report To 1 Name: , Report To 1 FAX: NextGen Order #: Procedure Note Miscellaneous, Not In File - 09/04/2017 CHRISTOS HOUSTON M.D. MARILIA BURCH M.D. FINAL REPORT The radiology attending physician has personally reviewed this study, and has reviewed and/or edited this written report and agrees with it. ACC# Date Time Exam [id number] May 30, 2017 13:14:[id number] Abd and Pelvis w/wo EXAMINATION: CT [...] HOUSTON M.D. on May 30 2017 2:06P [id number] Elena WEISS M.D. FINAL REPORT The radiology attending physician has personally reviewed this study, and has reviewed and/or edited this written report and agrees with it. Attending: TADEO IBRAHIM Requesting: TADEO IBRAHIM Requesting Fax: Attending Fax: Attending ID: [id number] Requesting ID: [id number] Report To 1 ID: [id number] Report To 1 Name: , Report To 1 FAX: NextGen Order #: Tadeo Ibrahim MD IMG CT PROCEDURES Edited Result - Final from Last 3 Months or Most Recently Relevant to Health Maintenance Insurance [facility] [employer] [facility] [employer] [facility] Asseta CHOICE Member Subscriber Plan / Payer ( fective 2019-Present) Name:Toan Max Relation to Subscriber:Self Name:Toan Max Payer ID:[id number] ([facility]) Type:[facility] Address: [address] [facility] [employer] Advance Directives For more information, please contact: [phone] * Full Code (Latest Code Status on File) Date Activated Date Inactivated Comments 12/09/2023 3:49 PM 12/12/2023 7:38 PM * Full Code Date Activated Date Inactivated Comments 08/18/2023 2:32 PM 08/23/2023 8:00 PM Care Teams Career Transition Specialist Relationship Specialty Start Date End Date Britta Hansen MD PCP - General Family Medicine 07/14/23 Khris Goldberg MD [address] [address] Referring Physician Cardiology 07/14/23 Sukh Robledo MD [address] [place] [id number] Consulting Physician Cardiothoracic Surgery 07/14/23 Rc Garza MD [address] [address] Referring Physician Cardiology 07/14/23
--- NOTE | 2025-05-23 06:47 | SUR.PREOP ---
Patient brought to GI Lab. Instructions for patient undergoing Capsule Endoscopy reviewed with patient. Consent form signed. Sensor array applied to patient's abdomen and connected to recorded. Patient swallowed capsule with ozs of water infused with Simethicone. Patient instructed they may have clear liquids at 0830 this AM and eat or drink at 1030 this AM. Patient instructed to return to GI Lab at 1500 this afternoon for removal of recording device and to call [phone] or to return to the hospital if any nausea and vomiting or abdominal pain is experienced.
--- NOTE | 2025-05-23 14:30 | SUR.PHASEII ---
Patient returned to the GI Lab at 1430 for recorder box removal. Patient voiced no complaints. States they have understanding of instructions. Patient left ambulatory.
== END 2025-05-23 05:43 | disposition home or self-care (01) ==
PROVIDERS: PCP Family Medicine; Visit Provider Internal Medicine Gastroenterology
PROC: 0DJ07ZZ Inspection of Upper Intestinal Tract, Via Natural or Artificial Opening (ICD-10-PCS; CPT 91110; principal; 2025-05-23 07:00)
DX: D50.9 Iron deficiency anemia, unspecified (principal)
CPT/HCPCS: 91110

== ENCOUNTER 2025-10-30 10:32 | Outpatient (CLI) | payer MEDICARE, SELFPAY ==
--- NOTE | ~2025-10-30 | XR_ITS ---
EXAMINATION: XR chest 2V, 10/30/2025 10:42 DINING SERVICE INSPECTOR HISTORY: PT C/O COUGH SOB SINCE YESTERDAY COMPARISON: No comparisons available. Technique: 2 views obtained. Findings: COPD changes. Mild pulmonary venous congestion. No pneumothorax. Heart is normal size. Mediastinal and hilar contours are within normal limits. Post sternotomy. Impression: Mild CHF Reviewed, dictated and finalized at location P. NG SERVICE INSPECTOR Impression: Mild CHF
--- OUTSIDE RECORDS SUMMARY | 2025-10-30 12:31 | XMS_ITS | Clinical Summary ---
Author Organization 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 Gender Identity Not on file Sexual Orientation [...] Health Maintenance Due Date Last Done Comments DTAP/TDAP/TD VACCINES (1 - Tdap) 1970 COLORECTAL SCREENING 1996 Colorectal Cancer Screening 1996 FIT-DNA Q 3 years 1996 FIT/FOBT Q 1 year 1996 Flex Sig/CT Colonography Q 5 years 1996 ZOSTER VACCINE (1 of 2) 2001 PNEUMOCOCCAL VACCINE 50+ YEA RS (2 of 2 - PCV20 or PCV21) 01/12/2018 01/12/2017 INFLUENZA VACCINE (#1) 2025 10/21/2017, 2015 RSV VACCINE (60+ or ) (1 - 1-dose 75+ series) 2026 Care Teams Music Specialist Relationship Specialty Start Date End Date Kayleigh Kelley MD [address] [place] [address] PCP - General Family Practice 01/29/20
--- OUTSIDE RECORDS SUMMARY | 2025-10-30 12:31 | XMS_ITS | Clinical Summary ---
Author Organization [facility] Lyn[facility]te [facility]elaria Address [address] [place] [address] Phone Care Team Providers Care Mcat Tutor Name Role Phone Britta Hansen MD Primary Care Provider [phone] Allergies Active Allergy Reactions Criticality Noted Date [...] directed 0 Active Lancets (OneTouch Delica Plus Xupoyg23A) misc 2 (two) times a day for [...] control. No changes made. Coronary arteriosclerosis in [place] artery 04/22 Overview (07/13/2019): Coronary arteriosclerosis in [place] artery Last Assessment & Plan: No symptoms [...] (#1) 2025 01/17/2016 Insurance [employer] Care Teams Mcat Tutor Relationship Specialty Start Date End Date Britta Hansen MD [address] [place] [address] PCP - General Internal Medicine 01/25/22
--- OUTSIDE RECORDS SUMMARY | 2025-10-30 12:31 | XMS_ITS | Clinical Summary ---
Author Organization [facility] Address [address] [place] [address] Care Team Providers Care Supervisor Propellant Charge Loading Name Role Phone Britta Hansen MD Primary Care Provider [phone] Khris Goldberg MD Unavailable [phone] Sukh Robledo MD Unavailable [phone] Rc Garza MD Unavailable [phone] Allergies Active Allergy Reactions Criticality Noted Date Comments Venom-Honey Bee Unknown 07/24/2018 Medications aspirin 81 mg tablet take 1 tablet (81MG) by oral route every day 0 04/14/20 13 Active SITagliptin (JANUVIA) 100 mg tablet take 1 tablet (100MG) by oral route every evening 0 04/14/20 13 Active doxazosin (CARDURA) 2 mg tablet Take 1 tablet (2 mg total) by mouth nightly Active EPINEPHrine (EPIPEN) 0.15 mg/0.3 mL injection syringeIndications:A naphylaxis Inject 0.3 mL (0.15 mg total) into the muscle as instructed as needed for anaphylaxis Active glimepiride (AMARYL) 4 mg tabletIndications:ty pe 2 diabetes mellitus Take 1 tablet (4 [...] by mouth 2 (two) times a day 10/30/20 20 Active traMADoL (ULTRAM) 50 mg tablet Take 1 tablet (50 mg total) by mouth every 8 (eight) hours as needed for pain 01/24/20 21 Active acetaminophen 500 mg capsuleIndications:P ain Take 2 capsules (1,000 mg total) by mouth every 6 (six) hours as needed for pain 08/23/20 23 Active lidocaine (LIDODERM) 5 % Place 2 patches on the skin daily for 7 days Remove & discard patch within 12 hours or as directed by MD. 7 patch 08/24/20 23 Active Additional Information Patient not taking.Reported on 08/16/2025 albuterol HFA (PROVENTIL HFA,VENTOLIN HFA,PROAIR HFA) 90 mcg/actuation inhaler INHALE 1 PUFF BY MOUTH EVERY 4 HOURS NEEDED FOR WHEEZING OR SHORTNESS OF BREATH 06/25/20 24 Active atorvastatin (LIPITOR) 80 mg tablet TAKE 1 TABLET(80 MG) BY MOUTH EVERY NIGHT 90 tablet 2 02/19/20 25 Active amLODIPine (NORVASC) 10 mg tablet TAKE 1 TABLET(10 MG) BY MOUTH DAILY 90 tablet 2 04/30/20 25 Active clopidogreL (PLAVIX) 75 mg tablet TAKE 1 TABLET(75 MG) BY MOUTH DAILY 90 tablet 1 06/24/20 25 Active FeroSuL 325 mg (65 mg iron) tablet TAKE 1 TABLET BY MOUTH EVERY DAY WITH VITAMINC 500 MG 05/14/20 25 Active Jardiance 10 mg tablet Take 1 tablet (10 mg total) by mouth daily 07/17/20 25 Active cyanocobalamin, vitamin B-12, 1,000 mcg/mL kit Inject as directed Active fenofibrate nanocrystallized (TRICOR) 145 mg tablet TAKE 1 TABLET(145 MG) BY MOUTH DAILY 90 tablet 3 09/25/20 25 Active Active Problems Problem Noted Date Diagnosed [...] important. Assessment & Plan (12/25/2019 11:03 AM CASING RUNNING MACHINE TENDER): Needs to lose weight through diet and [...] He Assessment & Plan (12/25/2019 11:02 AM CASING RUNNING MACHINE TENDER): Blood pressure is adequately controlled on current [...] was made. Coronary artery disease invo lving three affiliated coronary artery of three affiliated heart without angina pectoris 04/22/2015 Overview (02/18/2017): Coronary arteriosclerosis in three affiliated artery Assessment & Plan (02/01/2022 12:35 PM [...] tabs. Assessment & Plan (12/25/2019 11:02 AM CASING RUNNING MACHINE TENDER): He is experiencing stable angina, with exertional [...] Resolved Date Coronary artery disease invo lving three affiliated coronary artery of three affiliated heart with unstable angina pectoris 08/15/2023 11/01/2023 [...] made. Assessment & Plan (12/25/2019 11:03 AM CASING RUNNING MACHINE TENDER): On chronic lipid lowering therapy with good control. No changes made. Assessment & Plan (08/02/2019 5:41 PM CDT): He is on high-intensity statin therapy. LDL is reasonably controlled. HDL is chronically low. Assessment & Plan (08/11/2018 6:29 PM CDT): On chronic lipid lowering therapy with good control. No changes made. Encounters Date Type Department Care Team Description 08/16/2025 1:15 PM CDT Office Visit [facility] Cardiology at [address] [place] [address] Khris Goldberg MD Hx of CABG (Primary Dx); S/P coronary artery stent placement; Need for lipid screening from Last 3 Months Immunizations Immunization Administration [...] Hypertension CAD (coronary artery disease) Diabetes mellitus Sleep apnea Home Cpap Myocardial infarction (HCC) [...] from doctor or pharmacy Never 09/19/2023 [facility] Utilities Answer Date Recorded In the past 12 months has e electric, gas, oil, or water company threatened to shut off services in your home? No 12/12/2023 Social Connection and Isolation Panel Answer Date Recorded In a typical week, how many times do you talk on the phone with family, friends, or neighbors? More than three times a week 12/12/2023 How often do you get togethe r with friends or relatives? More than three times a week 12/12/2023 How often do you attend chur ch or adventism services? More than 4 times per year 12/12/2023 Do you belong to any clubs o r organizations such as oriental orthodox groups, unions, fraternal or athletic groups, or [...] place to sleep or slept in a halfway (including now)? No 12/12/2023 Personal Safety Answer Date Recorded Have you ever been in or are you currently in a harmful physical or emotional relationship or is someone making you feel afraid or unsafe? Denies 12/09/2023 Sex and Gender Information Value Date Recorded Sex Assigned at Not on file Legal Sex Male 11:23 AM CASING RUNNING MACHINE TENDER Gender Identity Not on file Sexual Orientation Not on file Last Filed Vital Signs Vital Sign Reading Time Taken Comments Blood Pressure 128/88 08/16/2025 12:51 PM CDT Pulse 90 08/16/2025 12:51 PM CDT Temperature 37.1 C (98.7 F) 12/12/2023 12:10 PM CASING RUNNING MACHINE TENDER Respiratory Rate 16 01/04/2024 11:1 1 AM CASING RUNNING MACHINE TENDER Oxygen Saturation 96% 08/16/2025 12: 51 PM CDT Inhaled Oxygen Concentration - - Weight 112.6 kg (248 lb 4.8 oz) 025 12:51 PM CDT Height 167.6 cm (5' 6) 08/16/2025 12:5 1 PM CDT Body Mass Index 40.08 08/16/2025 12:51 PM CDT Plan of Treatment Health Maintenance [...] Pneumococcal vaccine 65+ (2 of 2 - PPSV23, PCV20, or PCV21) 03/09/2017 01/12/2017 Hemoglobin A1C 02/17/2024 08/18/2023, 09/15, 07/11/2017 eGFR 12/11/2024 12/11/2023, 11/15, 12/06/2023, Additional history exists Fall Risk Assessment 12/12/2024 12/12/2023 Influenza Vaccine (#1) 2025 10/21/2017, 2015 Lipid Panel 08/16/2026 08/16/2025, 07/0 03/2024, 11/01/2023, Additional history exists Abdominal Aortic Aneurysm (A AA) Screen Completed 05/30/2017, 09/16/2014 Medical Devices Implanted Type Area Black Top Machine Operator Device Identifier Shelf Expiration Date Model / Serial / Lot Bard Peripheral Vascular Bard .25x.25in [place] Thk1.65mm Square [employer] Ptfe [id number] - [id number] Implanted:Qty: 1 on 08/18/2023 by Sukh Robledo MD at [facility] N/A: Heart Bard Peripheral Vascular 08/11/2026 [id number] / / [employer] Device Closure Fibertape Sternal [place] Blunt Needle Ar-7289 - [id number] Implanted:Qty: 1 on 08/18/2023 by Sukh Robledo MD at [facility] N/A: Sternum [employer] 06/13/2028 AR-7289 / / [id number] [employer] Device Closure Fibertape Sternal [place] Blunt Needle Ar-7289 - [id number] Implanted:Qty: 1 on 08/18/2023 by Sukh Robledo MD at [facility] N/A: Sternum [employer] 06/13/2028 AR-7289 / / [id number] [employer] Device Closure Fibertape Sternal [place] Blunt Needle Ar-7289 - [id number] Implanted:Qty: 1 on 08/18/2023 by Sukh Robledo MD at [facility] N/A: Sternum [employer] 06/13/2028 AR-7289 / / [id number] Procedures Procedure Name Priority Date/Time Associated Diagnosis Comments POCT LIPID PANEL Routine 08/16/2025 3:24 PM CDT Need for lipid screening EGFR Routine 12/11/2023 12:47 AM CASING RUNNING MACHINE TENDER HEMOGLOBIN A1C STAT 08/18/2023 8:[address] ABDOMEN PELVIS W WO CONTRAST Routine 05/30/2017 6:14 PM CDT from Last 3 Months or Most Recently Relevant to Health Maintenance Results * (ABNORMAL) POCT lipid panel (08/16/2025 3:24 PM CDT) Cholesterol, POC 120 <200 MG/DL HDL, POC 21(A) >=40 mg/dL Triglycerides, POC 175(A) <=149 mg/dL LDL Cholesterol POC 64 <=129 mg/dL Chol/HDL Ratio, POC 5.7 NONE Non-HDL Cholesterol, POC 99 NONE mg/dL Cholesterol Total, POC 120 30 - 199 mg/dL Capillary blood 08/16/2025 3 :24 PM CDT Khris Goldberg MD POINT OF CARE TEST ORDER CELESTE Final Result * eGFR (12/11/2023 12:47 AM CASING RUNNING MACHINE TENDER) eGFR 81 mL/min/1. 73 m2 [facility] Comment: Interpretive Data Reference Interval Normal [...] reviewed 2021. Blood 12/11/2023 12:4 7 AM CASING RUNNING MACHINE TENDER 12/11/2023 1:09 AM CASING RUNNING MACHINE TENDER us Robbie Meyer PA LAB BLOOD ORDERABLES Final R esult Performing Organization Address City/[facility] Co de Phone Number [facility] [address] [email or web address] [address] * (ABNORMAL) Hemoglobin A1c (08/18/2023 8:08 AM CDT) Hgb A1C 6.3(H) 4.0 - 5.6 % [facility] Estimated Average Glucose 134 mg/dL [facility] Comment: The ADA recommends reporting an estimated Average Glucose (eAG) with all Hemoglobin A1c results using the equation derived from a study of 507 normal and diabetic adults. Minority populations were underrepresented and children were not included. (Diabetes Care 31:6479-2863, 2008). The eAG is not equivalent to a fasting glucose. Blood 08/18/2023 8:08 AM CDT 08/18/2023 8:21 AM CDT us Monisha Short NP LAB BLOOD ORDERABLES Final Resul t Performing Organization Address City/[facility]/ZIP Co de Phone Number [facility] [address] [email or web address] [address] * CT Abdomen Pelvis W WO Contrast (05/30/2017 6:14 PM CDT) Anatomical Region Laterality Modality Body N/A Computed Tomogra phy 05/30/2017 6:14 PM CDT Narrative 05/30/2017 6:14 PM CDT CHRISTOS HOUSTON M.D. MARILIA BURCH M.D. FINAL REPORT The radiology attending physician has personally reviewed this study, and has reviewed and/or edited this written report and agrees with it. [facility]# Date Time Exam [id number] May 30, 2017 13:14:[id number] Abd and Pelvis w/wo EXAMINATION: CT [...] By: TADEO IBRAHIM M.D. Dictated By: MARILIA UBRCH M.D. on May 30 2017 2:00P This document has been electronically signed by: CHRISTOS HOUSTON M.D. on May 30 2017 2:06P [id number] Elena WEISS M.D. FINAL REPORT The radiology attending physician has personally reviewed this study, and has reviewed and/or edited this written report and agrees with it. Attending: TADEO IBRAHIM Requesting: TADEO IBRAHIM Requesting Fax: Attending Fax: Attending ID: [id number] Requesting ID: [id number] Report To 1 ID: [id number] Report To 1 Name: , Report To 1 FAX: NextGen Order #: Procedure Note Miscellaneous, Not In File - 09/04/2017 Rosa Elena WEISS M.D. FINAL REPORT The radiology attending physician has personally reviewed this study, and has reviewed and/or edited this written report and agrees with it. [facility]# Date Time Exam [id number] May 30, 2017 13:14:[id number] Abd and Pelvis w/wo EXAMINATION: CT [...] HOUSTON M.D. on May 30 2017 2:06P [id number] Elena SNOW M.D. FINAL REPORT The radiology attending physician has personally reviewed this study, and has reviewed and/or edited this written report and agrees with it. Attending: TADEO IBRAHIM Requesting: TADEO IBRAHIM Requesting Fax: Attending Fax: Attending ID: [id number] Requesting ID: [id number] Report To 1 ID: [id number] Report To 1 Name: , Report To 1 FAX: NextGen Order #: Tadeo Ibrahim MD IMG CT PROCEDURES Edited Result - Final from Last 3 Months or Most Recently Relevant to Health Maintenance Insurance [facility] L[employer] CHOICE Member Subscriber Plan / Payer (Ef fective 2019-Present) Name:Toan Max Stefany Relation to Subscriber:Self Name:Toan Max Payer ID:[id number] (NA) Type:[facility] Address: [address] [facility] Advance Directives For more information, please contact: [phone] * Full Code (Latest Code Status on File) Date Activated Date Inactivated Comments 12/09/2023 3:49 PM 12/12/2023 7:38 PM * Full Code Date Activated Date Inactivated Comments 08/18/2023 2:32 PM 08/23/2023 8:00 PM Care Teams Supervisor Propellant Charge Loading Relationship Specialty Start Date End Date Britta Hansen MD PCP - General Family Medicine 07/14/23 Khris Goldberg MD [address] [address] Referring Physician Cardiology 07/14/23 Sukh Robledo MD [address] [address] Consulting Physician Cardiothoracic Surgery 07/14/23 Rc Garza MD [address] [place] [address] Referring Physician Cardiology 07/14/23
== END 2025-10-30 10:33 | disposition home or self-care (01) ==
PROVIDERS: PCP Student in an Organized Health Care Education/Training Program; Visit Provider Student in an Organized Health Care Education/Training Program
DX: R06.00 Dyspnea, unspecified (principal); R05.9 Cough, unspecified; I50.9 Heart failure, unspecified
CPT/HCPCS: 71046